=== PATIENT | female | born 2000 | race Hispanic/Latino ===

== ENCOUNTER 2021-10-21 20:18 | Emergency (ER) | payer OTHER, SELFPAY ==
[2021-10-21 20:56] VITALS: BP 104/66; PULSE 83; RESP 18; TEMP 36.7; O2SAT 100
[2021-10-21 21:17] LABS: Basophils Percent Auto 0.2 % (0.2-1.2); Eosinophils Absolute Auto 0.2 K/mm3 (0-0.3); Eosinophils Percent Auto 1.3 % (0-4.4); Hemoglobin 13.9 g/dL (12.0-15.0); Immature Granulocyte Absolute 0.06 K/mm3 (0.00-0.031); Immature Granulocyte Percent A 0.4 % (0-0.5); Lymphocytes Absolute Auto 2.52 K/mm3 (0.9-3.2); Lymphocytes Percent Auto 15.2 % (18.3-44.2); Mean Corpuscular HGB Conc 33.1 g/dl (32-36); Mean Corpuscular Hemoglobin 28.8 pg (26-34); Mean Platelet Volume 10.3 fl (7.4-10.4); Monocytes Absolute Auto 0.8 K/mm3 (0.1-0.6); Monocytes Percent Auto 4.9 % (2.6-8.5); Neutrophils Absolute Auto 12.9 K/mm3 (1.3-6.7); Platelet Count Result 290 k/mm3 (150-375); Red Blood Count 4.83 M/mm3 (4.2-5.4); Red Cell Distribution Width 12.8 % (11.5-14.5); White Blood Count 16.6 K/mm3 (4.5-10.0)
[2021-10-21 21:28] LABS: Alanine Aminotransferase 80 U/L (6-35); Albumin Level 4.5 g/dL (3.5-5.1); Alkaline Phosphatase 110 U/L (38-126); Anion Gap 11 mmol/L (8-16); Aspartate Amino Transferase 138 U/L (14-36); Bilirubin,Total 0.5 mg/dL (0.2-1.3); Blood Urea Nitrogen 10 mg/dL (7-17); Calcium 8.8 mg/dL (8.4-10.2); Carbon Dioxide 25 mmol/L (22-30); Chloride 103 mmol/L (98-107); Estimated CRCL calculation 113 ml/min; Estimated Glomerular Filt Rate > 60; Glucose 134 mg/dL (65-110); Lipase 61 U/L (23-300); Potassium 3.6 mmol/L (3.4-5.0); Sodium 139 mmol/L (137-145)
--- NOTE | 2021-10-21 23:37 | PC.NURSE ---
No answer when pt called to treatment area.
--- NOTE | 2021-10-21 23:43 | PC.NURSE ---
Pt not in waiting room, bathroom, or area adjacent to ED. Assume pt left the premises without being examined by a provider and after trige.
== END 2021-10-21 23:43 | disposition left against medical advice (07) ==
LOC: ANHED 23:52
PROVIDERS: Emergency Provider Emergency Medicine; PCP Pediatrics
DX: M54.6 Pain in thoracic spine (principal)
CPT/HCPCS: 36415; 80053; 83690; 85025; 99199

== ENCOUNTER 2022-09-15 12:52 | Emergency (ER) | payer OTHER, SELFPAY ==
--- NOTE | ~2022-09-15 | US_ITS ---
EXAMINATION: US abdomen limited DATE: 09/15/2022 16:06 INDICATION: Epigastric abdominal pain TECHNIQUE: Multiple grayscale and Doppler ultrasound images of the abdomen were obtained. COMPARISON: CT from today FINDINGS: The head and body of the pancreas are normal. The pancreatic tail is obscured by bowel gas. The liver is normal with normal echogenicity and echotexture. No surface nodularity. Normal hepatope isa flow in the main portal vein. Stones and sludge are present in the otherwise normal-appearing gal lbladder. No gallbladder wall thickening or pericholecystic fluid. The normal common bile duct measur es 4 mm. There was no sonographic Vera sign. IMPRESSION: 1. Gallbladder stones and sludge. Reviewed, dictated and finalized at location B.
--- NOTE | ~2022-09-15 | CT_ITS ---
EXAMINATION: CT abdomen pelvis w con DATE: 09/15/2022 14:55 INDICATION: Epigastric abdominal pain. TECHNIQUE: Computed tomography (CT) of the abdomen and pelvis was performed with 100 mL Omnipaque 350 intravenous contrast. Automated exposure control and iterative reconstruction technique were employe d. The dose-length product was 632.14 mGy-cm. COMPARISON: None. FINDINGS: The visualized portions of the lung bases are clear without pneumonia or pleural effusion. The heart size is normal. No pericardial effusion. The liver, gallbladder, spleen, pancreas, adrenal glands, and kidneys are normal. There are no dilated loops of bowel. The appendix is normal. There ar e no pathologically enlarged lymph nodes. There is no free intraperitoneal fluid. The bones are unrem arkable. IMPRESSION: 1. No etiology for the patient's symptoms. Reviewed, dictated and finalized at location E.
[2022-09-15 12:54] VITALS: BP 123/67; PULSE 86; RESP 14; TEMP 36.6; O2SAT 100
[2022-09-15 13:15] LABS: Basophils Percent Auto 0.4 % (0.2-1.2); Eosinophils Absolute Auto 0.2 K/mm3 (0-0.3); Hematocrit 41.4 % (37.0-47.0); Hemoglobin 13.3 g/dL (12.0-15.0); Immature Granulocyte Absolute 0.02 K/mm3 (0.00-0.031); Immature Granulocyte Percent A 0.3 % (0-0.5); Lymphocytes Absolute Auto 1.52 K/mm3 (0.9-3.2); Lymphocytes Percent Auto 21.7 % (18.3-44.2); Mean Corpuscular HGB Conc 32.1 g/dl (32-36); Mean Corpuscular Volume 90.2 fl (80-100); Mean Platelet Volume 10.1 fl (7.4-10.4); Monocytes Absolute Auto 0.6 K/mm3 (0.1-0.6); Monocytes Percent Auto 8.8 % (2.6-8.5); Neutrophils Absolute Auto 4.6 K/mm3 (1.3-6.7); Neutrophils Percent Auto 65.8 % (45.5-73.1); Platelet Count Result 228 k/mm3 (150-375); Red Blood Count 4.59 M/mm3 (4.2-5.4); Red Cell Distribution Width 13.2 % (11.5-14.5)
[2022-09-15 13:28] LABS: Appearance Urine Clear (Clear); Bacteria Urine 1+ /hpf; Bilirubin Urine Negative (Negative); Blood Urine Negative (Negative); Color Urine Yellow (Yellow); Glucose Urine UA Negative (Negative); Ketones Urine Negative (Negative); Leukocyte Esterase Ur 2+ LEU/UL (Negative); Nitrate Urine Negative (Negative); Non Pathogenic Casts 0-2; Protein Urine Negative (Negative); RBC Urine 0-2 /hpf (0-2); Squamous Epithelial Cell Urine Few /hpf (Few)
[2022-09-15 13:29] LABS: Add Urine Microscopic? YES
[2022-09-15 13:30] LABS: Alanine Aminotransferase 204 U/L (6-35); Albumin Level 4.4 g/dL (3.5-5.1); Alkaline Phosphatase 130 U/L (38-126); Anion Gap 7 mmol/L (8-16); Aspartate Amino Transferase 178 U/L (14-36); Bilirubin,Total 0.8 mg/dL (0.2-1.3); Blood Urea Nitrogen 9 mg/dL (7-17); Calcium 8.9 mg/dL (8.4-10.2); Carbon Dioxide 26 mmol/L (22-30); Chloride 108 mmol/L (98-107); Estimated CRCL calculation 138 ml/min; Estimated Glomerular Filt Rate > 60; Glucose 97 mg/dL (65-110); Lipase 62 U/L (23-300); Potassium 3.8 mmol/L (3.4-5.0); Sodium 141 mmol/L (137-145)
--- NOTE | 2022-09-15 13:32 | ED.ABDPAIN ---
HPI - Abdominal Pain General Chief Complaint: Abdominal Pain Stated Complaint: Abd pain Time Seen by Provider: 09/15/22 13:31 Related Data Allergies Allergy/AdvReac Type Severity Reaction Status Date / Time No Known Allergies Allergy Verified 09/15/22 12:59 Course Vital Signs Vital signs: Vital Signs Temperature 36.6 C 09/15/22 12:54 Pulse Rate 86 09/15/22 12:54 Respiratory Rate 14 09/15/22 12:54 Blood Pressure 123/67 09/15/22 12:54 Pulse Oximetry 100 09/15/22 12:54 Oxygen Delivery Room Air 09/15/22 12:54 Temperature 36.6 C 09/15/22 12:54 Pulse Rate 86 09/15/22 12:54 Respiratory Rate 14 09/15/22 12:54 Blood Pressure 123/67 09/15/22 12:54 Pulse Oximetry 100 09/15/22 12:54 Oxygen Delivery Room Air 09/15/22 12:54 MDM - Abdominal Pain MDM Narrative Medical decision making narrative: Patient presents with intermittent epigastric squeezing pain for months, has been constant for the last few days. She denies any fever, chills, nausea, vomiting. Physical examination showed no significant abnormality. Differential diagnosis gastritis, esophagitis, pancreatitis, gallbladder pathology. Work-up today includes CBC, CMP, lipase, urine analysis, CT abdomen pelvis with IV contrast showed normal CBC, normal chemistry, elevated liver enzymes, normal bilirubin. Urine analysis positive for leukoesterase/2+, WBC 11?20, urine bacteria 1+ CT abdomen and pelvis with IV contrast showed no acute abnormalities, because of the elevated liver enzymes, ultrasound of the gallbladder ordered which showed gall bladder stones and sludge. No cholecystitis at this time. Urinary tract infection could be coincidental finding, is not consistent with physical examination and complaints. My plan to discharge patient on PPI and antibiotic for urinary tract infection. And referred patient to wire saw operator for further evaluation. Differential Diagnosis Differential diagnosis: Likely abdominal pain, constipation, pancreatitis and other (Gastritis, esophagitis) Medical Records Attestation: I reviewed the patient's medical records. Lab Data Attestation: I reviewed the patient's lab results. 09/15/22 13:10 09/15/22 13:10 Labs: Lab Results 09/15/22 Range/Units 13:10 WBC 7.0 (4.5-10.0) K/mm3 RBC 4.59 (4.2-5.4) M/mm3 Hgb 13.3 (12.0-15.0) g/dL Hct 41.4 (37.0-47.0) % MCV 90.2 (80-100) fl MCH 29.0 (26-34) pg MCHC 32.1 (32-36) g/dl RDW 13.2 (11.5-14.5) % Plt Count 228 (150-375) k/mm3 MPV 10.1 (7.4-10.4) fl Immature Gran % (Auto) 0.3 (0-0.5) % Neut % (Auto) 65.8 (45.5-73.1) % Lymph % (Auto) 21.7 (18.3-44.2) % Garrett % (Auto) 8.8 H (2.6-8.5) % Eos % (Auto) 3.0 (0-4.4) % Baso % (Auto) 0.4 (0.2-1.2) % Lymph # (Auto) 1.52 (0.9-3.2) K/mm3 Garrett # (Auto) 0.6 (0.1-0.6) K/mm3 Eos # (Auto) 0.2 (0-0.3) K/mm3 Baso # (Auto) 0.0 (0.0-0.1) K/mm3 Abs Immat Gran (auto) 0.02 (0.00-0.031) K/mm3 Absolute Neuts (auto) 4.6 (1.3-6.7) K/mm3 Absolute Nucleated RBC 0.0 (0.0-0.012) K/mm3 Nucleated RBC % 0.0 (0.0-0.2) % Sodium 141 (137-145) mmol/L Potassium 3.8 (3.4-5.0) mmol/L Chloride 108 H (98-107) mmol/L Carbon Dioxide 26 (22-30) mmol/L Anion Gap 7 L (8-16) mmol/L BUN 9 (7-17) mg/dL Creatinine 0.50 L (0.7-1.0) mg/dL Estim Creat Clear Calc 138 ml/min Estimated GFR > 60 (59 - ) Glucose 97 (65-110) mg/dL Calcium 8.9 (8.4-10.2) mg/dL Total Bilirubin 0.8 (0.2-1.3) mg/dL AST 178 H (14-36) U/L ALT 204 H (6-35) U/L Alkaline Phosphatase 130 H (38-126) U/L Total Protein 8.0 (6.3-8.2) g/dL Albumin 4.4 (3.5-5.1) g/dL Lipase 62 (23-300) U/L Urine Color Yellow (Yellow) Urine Appearance Clear (Clear) Urine pH 7.0 (5.0-9.0) Ur Specific [place] 1.010 (1.001-1.035) Urine Protein Negative (Negative) mg/dL Urine Glucose (UA) Negative (Negative) mg/dL Urine Ketones Negative
[2022-09-15] MEDS: SODIUM CHLORIDE 0.9% IV 1,000 ML 999 ML IV CONT (14:15)
[2022-09-15 17:31] VITALS: PULSE 82; RESP 18; O2SAT 99
== END 2022-09-15 17:34 | disposition home or self-care (01) ==
PROVIDERS: Emergency Provider Emergency Medicine
DX: N39.0 Urinary tract infection, site not specified (principal); R10.13 Epigastric pain; R74.01 Elevation of levels of liver transaminase levels; K80.20 Calculus of gallbladder without cholecystitis without obstruction
CPT/HCPCS: 36415; 74177; 76705; 80053; 81001; 81025; 83690; 85025; 87077; 87086; 87088; 87186; 96360; 99284; J7030; Q9967

== ENCOUNTER 2022-11-04 11:16 | Outpatient (CLI) | payer OTHER, SELFPAY ==
[2022-11-04 12:22] LABS: Alanine Aminotransferase 22 U/L (6-35); Albumin Level 4.5 g/dL (3.5-5.1); Alkaline Phosphatase 88 U/L (38-126); Anion Gap 7 mmol/L (8-16); Aspartate Amino Transferase 28 U/L (14-36); Bilirubin,Total 0.4 mg/dL (0.2-1.3); Blood Urea Nitrogen 7 mg/dL (7-17); Carbon Dioxide 27 mmol/L (22-30); Chloride 105 mmol/L (98-107); Estimated Glomerular Filt Rate > 60; Glucose 86 mg/dL (65-110); Potassium 3.9 mmol/L (3.4-5.0); Sodium 139 mmol/L (137-145)
[2022-11-04 13:09] LABS: Iron 60 ug/dL (37-170)
[2022-11-04 13:19] LABS: Percent Iron Saturation 15 % (20-50)
[2022-11-04 13:41] LABS: Hepatitis B Surface Antigen Negative (Negative)
[2022-11-04 13:47] LABS: HAV RESULT Negative (Negative); Hepatitis B Core IgM Result Negative (Negative)
[2022-11-04 13:59] LABS: Hepatitis C Virus Antibody Negative (Negative)
[2022-11-07 14:37] LABS: Ceruloplasmin 28 mg/dL (18-53)
[2022-11-09 22:10] LABS: Mitochondrial (M2) Ab (IgG) <=20.0 U (<=20.0)
== END 2022-11-04 11:17 | disposition home or self-care (01) ==
PROVIDERS: Visit Provider Internal Medicine Gastroenterology
DX: R74.8 Abnormal levels of other serum enzymes (principal); N64.3 Galactorrhea not associated with childbirth
CPT/HCPCS: 36415; 80053; 80074; 82104; 82390; 82728; 83520; 83540; 83550; 84146; 86038

== ENCOUNTER 2022-11-12 01:16 | Day surgery (SDC) | payer OTHER, SELFPAY ==
[2022-11-05 14:43] VITALS: BMI 37.5
[2022-11-12 10:48] VITALS: BP 123/75; PULSE 93; RESP 18; TEMP 36.6; O2SAT 100
[2022-11-12] MEDS: LACTATED RINGERS 1,000 ML 150 ML IV CONT (11:00)
--- NOTE | 2022-11-12 11:11 | WPDHPUPDATE1 ---
History and Physical Update Update Date/Time: 11/12/22 11:11 History and Physical has been reviewed, including an updated exam of the patient. There are NO changes in the patient's condition. Risks, benefits, and alternatives have been discussed and questions answered. Patient agrees to proceed with procedure.
--- NOTE | 2022-11-12 11:15 | P.PNAN_ITS ---
Anes - Initial Pre Proc Eval Procedure: Operation Date: 11/12/22 12:30 Proposed Procedures p Esophagogastroduodenoscopy EGD - David Owen MD Date/Time: 11/12/22 11:15 Surgeon: David Owen MD Pre Op Diagnosis: upper abdominal pain, unspecified Patient Data Age: 21 Gender: F Height: 1.55 m Weight: 88.1 kg Last Vital Signs Temp 97.8 F 11/12/22 10:48 Pulse 93 11/12/22 10:48 Resp 18 11/12/22 10:48 BP 123/75 11/12/22 10:48 Pulse Ox 100 11/12/22 10:48 O2 Del Method Room Air 11/12/22 10:48 Allergies Allergy/AdvReac Type Severity Reaction Status Date / Time No Known Allergies Allergy Verified 11/12/22 10:46 Home Medications Medication Instructions Recorded Confirmed Type etonogestrel 68 mg subdermal 1 implant subdermal ONCE 11/05/22 11/12/22 History implant (Nexplanon) Patient hx anesthesia problems: none Family hx anesthesia problems: none Results Review: All pre-operative results and documents have been reviewed as part of the pre- operative evaluation. [facility] Past Medical History Medical History (Updated 11/04/22 @ 10:45 by David Owen MD) Dyspepsia Galactorrhea Upper abdominal pain Social History Social History (Updated 11/04/22 @ 10:24 by Shara Lewis CMA) Smoking status: Never smoker Alcohol intake: never Substance use: never Substance use type: does not use Living arrangements: with family Spiritual care concerns: No Anes - Eval Final PreProcedure Day of Procedure 11/12/22 11:15 Patient weight: obese Heart: regular rate and rhythm Lungs: clear to auscultation Airway: Mallampati scale class II Neurological: alert and oriented Last oral intake: >/= 8 hours ASA classification: II Emergent: no Anesthetic plan: proceed Anesthesia type and monitoring: general GIVS and standard monitoring Results Review: All pre-operative results and documents have been reviewed as part of the pre- operative evaluation. Informed Consent: The patient's anesthetic plan and its attendant risks and benefits were discussed with the patient/family/POA. Questions were solicited and answers provided to the satisfaction of the patient/family/POA.
[2022-11-12 11:20] VITALS: BP 111/66; PULSE 85; RESP 21; O2SAT 99
[2022-11-12 11:30] VITALS: BP 120/65; PULSE 73; RESP 16; O2SAT 98
[2022-11-12 11:40] VITALS: BP 112/77; PULSE 63; RESP 17; O2SAT 100
== END 2022-11-12 11:51 | disposition home or self-care (01) ==
PROVIDERS: Visit Provider Internal Medicine Gastroenterology
PROC: 0DJ08ZZ Inspection of Upper Intestinal Tract, Via Natural or Artificial Opening Endoscopic (ICD-10-PCS; CPT 43235; principal; 2022-11-12 12:30)
DX: K29.50 Unspecified chronic gastritis without bleeding (principal); E66.9 Obesity, unspecified; Z68.36 Body mass index [BMI] 36.0-36.9, adult
CPT/HCPCS: 43239; 88305; 88342; J2704; J7120

== ENCOUNTER 2022-12-01 14:51 | Outpatient (CLI) | payer OTHER, SELFPAY ==
--- NOTE | ~2022-12-01 | MR_ITS ---
MRI of the abdomen: Clinical indication: Abdominal pain. Technique: Coronal SSFSE ARC, WATER:coronal LAVA-FLEX, Coronal 2D FIESTA FatSat, Axial SSFSE BH ARC, Axial 3D DualEcho BH, Axial SSFSE-IR, Axial DWI b=500, Axial 2D FIESTA FatSat, pre and dynamic postco ntrast Axial LAVA ARC, postcontrast Coronal In and Opposed phase LAVA FLEX. Following intravenous adm inistration of 18 cc MultiHance gadolinium, T1-weighted fat-sat imaging was performed in the axial an d coronal planes. Findings: Multiple gallstones are noted. The common bile duct is upper limits of normal in diameter, at 6-7 mm. There is a probable small stone at the distal common bile duct, measuring approximately 3 mm (series 3 image 21, series 8 image 11).. No evidence of intrahepatic biliary ductal dilatation. T he pancreatic duct is normal in size. Liver, spleen, pancreas, adrenals, kidneys appear normal. The aorta and the paraaortic regions appear normal. Impression: Cholelithiasis. Probable 3 mm distal common bile duct stone. Common bile duct itself is upper limits of normal in siz e. No evidence for intrahepatic biliary dilatation or acute pancreatitis. Reviewed, dictated and finalized at location M. Impression: Cholelithiasis. Probable 3 mm distal common bile duct stone. Common bile duct itself is upper l imits of normal in size. No evidence for intrahepatic biliary dilatation or acute pancreatitis.
== END 2022-12-01 14:52 | disposition home or self-care (01) ==
PROVIDERS: Visit Provider Internal Medicine Gastroenterology
DX: R10.10 Upper abdominal pain, unspecified (principal); R74.8 Abnormal levels of other serum enzymes; K80.20 Calculus of gallbladder without cholecystitis without obstruction
CPT/HCPCS: 74183; A9577

== ENCOUNTER 2022-12-29 00:49 | Day surgery (SDC) | payer OTHER, SELFPAY ==
[2022-12-16 13:36] VITALS: BMI 36.7
[2022-12-29] VITALS (8 sets, daily range): BP systolic 107–138; BP diastolic 51–76; PULSE 78–97; RESP 16–24; TEMP 36.6–36.7; O2SAT 99–100
--- NOTE | ~2022-12-29 | XR_ITS ---
EXAMINATION: XR ERCP DATE: 12/29/2022 12:15 CDT INDICATION: ERCP STONES . TECHNIQUE: 3 fluoroscopic images of the right upper quadrant were obtained during ERCP. I was not pre sent during the procedure. Fluoroscopy exposure time was 122.5 seconds. Air Kerma 17.17 mGy. DAP 0.52 222 mGym2. COMPARISON: MR abdomen 12/01/2022. FINDINGS: Mildly prominent common bile duct. Cannulation of the biliary system. Bile duct filling defect may re present a gas bubble or stone. Likely balloon sweep of the common duct. IMPRESSION: Fluoroscopic documentation of ERCP. Please refer to the operative note for complete procedural detail s . Reviewed, dictated and finalized at location K. IMPRESSION: Fluoroscopic documentation of ERCP. Please refer to the operative note for comp lete procedural details .
[2022-12-29] MEDS: LACTATED RINGERS 1,000 ML 150 ML IV CONT (11:50)
--- NOTE | 2022-12-29 11:52 | WPDANESEPPF ---
Anes - Initial Pre Proc Eval Procedure: Operation Date: 12/29/22 13:00 Proposed Procedures p Endoscopic Retro Cholangiopancreatogram - David Owen MD Date/Time: 12/29/22 11:52 Surgeon: David Owen MD Pre Op Diagnosis: Calculus of bile duct,Cholelithiasis. Patient Data Age: 22 Gender: F Height: 1.55 m Weight: 89.7 kg Last Vital Signs Temp 97.9 F 12/29/22 11:32 Pulse 81 12/29/22 11:32 Resp 18 12/29/22 11:32 BP 138/76 12/29/22 11:32 Pulse Ox 100 12/29/22 11:32 O2 Del Method Room Air 12/29/22 11:32 Allergies Allergy/AdvReac Type Severity Reaction Status Date / Time No Known Allergies Allergy Verified 12/29/22 11:31 Home Medications Medication Instructions Recorded Confirmed Type No Home Medications 12/16/22 12/16/22 History Patient hx anesthesia problems: none Family hx anesthesia problems: none Results Review: All pre-operative results and documents have been reviewed as part of the pre-operative evaluation. [facility] Past Medical History Medical History Bile duct stone Cholelithiasis Dyspepsia Galactorrhea Helicobacter positive gastritis Upper abdominal pain Social History Social History Smoking status: Never smoker Alcohol intake: never Substance use: never Substance use type: does not use Living arrangements: with family Spiritual care concerns: No Anes - Eval Final PreProcedure Day of Procedure 12/29/22 11:52 Patient weight: obese Heart: regular rate and rhythm Lungs: clear to auscultation Airway: Mallampati scale class II Neurological: alert and oriented Last oral intake: >/= 8 hours ASA classification: II Emergent: no Anesthetic plan: proceed Anesthesia type and monitoring: general ETT and standard monitoring Results Review: All pre-operative results and documents have been reviewed as part of the pre-operative evaluation. Informed Consent: The patient's anesthetic plan and its attendant risks and benefits were discussed with the patient/family/POA. Questions were solicited and answers provided to the satisfaction of the patient/family/POA.
--- NOTE | 2022-12-29 12:14 | PM.HPGS ---
History of Present Illness History of Present Illness Consent: Risks, benefits, and alternatives have been discussed and questions answered. Patient agrees to proceed with procedure. Chief complaint: Calculus of bile duct,Cholelithiasis. Narrative: Caro Tom is a 22 year old female with previous ER visit after abdominal pain and elevated liver enzymes (normalized since and no more episodes) but MRCP showed small stone in bile duct and cholelithiasis. Recent EGD unremarkable but bx showed h pylori- treated. Here for ercp Review of Systems Constitutional: Constitutional: Denies headache(s) and Denies weakness Eyes: Eyes: Denies blurry vision ENT: Reports Normal hearing present, Denies headache(s) and Denies neck pain Cardiovascular: Cardiovascular: Denies chest pain and Denies dyspnea Respiratory: Respiratory: Denies dyspnea Gastrointestinal: Gastrointestinal: Reports no additional gastrointestinal complaints Genitourinary: Genitourinary: Denies dysuria Musculoskeletal: Musculoskeletal: Denies neck pain Integumentary/Breasts: Skin/Breast: Denies dry skin Neurologic: Reports Normal hearing present, Denies headache(s) and Denies weakness Psychiatric: Psychiatric: Denies anxiety Endocrine: Endocrine: Denies change in body appearance Hematologic/Lymphatic: Hematologic/Lymphatic: Denies easy bleeding Allergic/Immunologic: Allergic/Immunologic: Denies urticaria PMFSH Past Medical History Medical History Bile duct stone Cholelithiasis Dyspepsia Galactorrhea Helicobacter positive gastritis Upper abdominal pain Social History Social History Smoking status: Never smoker Alcohol intake: never Substance use: never Substance use type: does not use Living arrangements: with family Spiritual care concerns: No Meds Home Medications and Allergies Home Medications Medication Instructions Recorded Confirmed Type No Home Medications 12/16/22 12/16/22 History Allergies Allergy/AdvReac Type Severity Reaction Status Date / Time No Known Allergies Allergy Verified 12/29/22 11:31 Vital Signs Vital Signs - 24 hr 12/29/22 11:32 Temperature 97.9 F Pulse Rate 81 Respiratory Rate 18 Blood Pressure 138/76 Pulse Oximetry 100 Oxygen Delivery Room Air Exam Const: General: comfortable and no acute distress HENMT: Face/Nose/Sinus: Normal nares present Eyes: General: appearance normal, both eyes and all related structures Neck: Neck: no JVD Resp: Auscultation: clear to auscultation bilaterally Cardio: Rate: regular rate Rhythm: regular rhythm GI: Inspection: non-distended GI Palp: Yes Soft to palpation Skin: General skin exam: normal color Neuro: General: gait normal Speech: normal speech Extrem: General: normal to inspection Psych: Mental Status: mental status grossly normal Assessment and Plan Assessment and plan (1) Bile duct stone: Code(s): K80.50 - Calculus of bile duct without cholangitis or cholecystitis without obstruction Status: Acute Assessment and Plan: ercp to assess bile duct patient will received indomethacin supp as prophylaxis (2) Cholelithiasis: Code(s): K80.20 - Calculus of gallbladder without cholecystitis without obstruction Status: Acute Assessment and Plan: probably will need also surgery referral
[2022-12-29] MEDS: INDOMETHACIN 50 MG SUPP.RECT 100 MG RECTAL (12:30)
== END 2022-12-29 14:36 | disposition home or self-care (01) ==
PROVIDERS: Visit Provider Internal Medicine Gastroenterology
PROC: (CPT 43260; principal; 2022-12-29 13:00)
DX: K80.70 Calculus of gallbladder and bile duct without cholecystitis without obstruction (principal); E66.9 Obesity, unspecified; Z68.37 Body mass index [BMI] 37.0-37.9, adult
CPT/HCPCS: 43262; 43264; 74329; A9270; J1100; J2405; J2704; J7120; Q9966

== ENCOUNTER 2022-12-29 18:25 | Inpatient (IN) | payer OTHER, SELFPAY ==
--- NOTE | ~2022-12-29 | CT_ITS ---
EXAMINATION: CT abdomen pelvis w con DATE: 12/29/2022 22:08 INDICATION: RUQ abdominal pain TECHNIQUE: Computed tomography (CT) of the abdomen and pelvis was performed with 100 mL Omnipaque-350 intravenous contrast. Automated exposure control and iterative reconstruction technique were employe d. The dose-length product was 739.82 mGy-cm. COMPARISON: 09/15/2022. FINDINGS: Lower thorax: Unremarkable Liver: Normal. Biliary/Gallbladder: Gallbladder is normal. No bile duct dilation. Pancreas: Inflammatory stranding and fluid surrounding the head and uncinate process of the pancreas. Spleen: Normal. Adrenals:No mass. Kidneys: No suspicious mass, obstructing stone, or hydronephrosis. GI tract: Mild distal esophageal and gastric wall edema. No small bowel dilation. Dilation of the cec um to 9.3 cm, which is transposed into the midabdomen through an apparent mesenteric defect and folde d back on itself, accompanied by several loops of nondilated small bowel and mesenteric twisting. Cec al position was previously normal. Normal appendix. Mesentery/Peritoneum: Fluid extends from the pancreatic bed into the left paracolic gutter. Retroperitoneum: No mass. Pelvis: Pelvic organs are within normal limits. Soft Tissues: Soft tissues and body wall unremarkable. Bones: No acute osseous finding. IMPRESSION: Mild esophagitis/gastritis. Acute, uncomplicated interstitial pancreatitis. The dilated cecum is transposed into the mid abdomen through an apparent mesenteric defect, accompani ed by twisting of the mesentery which can be seen with cecal volvulus and cecal bascule. Reviewed, dictated and finalized at location K. IMPRESSION: Mild esophagitis/gastritis. Acute, uncomplicated interstitial pancreatitis. The dilated cecum is transposed into the mid abdomen through an apparent mesent neena defect, accompanied by twisting of the mesentery which can be seen with ce peyton volvulus and cecal bascule.
--- NOTE | ~2022-12-29 | XR_ITS ---
EXAMINATION: XR abdomen gastric tube insert DATE: 12/30/2022 00:22 INDICATION: Nasogastric tube placement. TECHNIQUE: An upright view of the abdomen was obtained. COMPARISON: CT abdomen and pelvis 12/29/2022 FINDINGS: The lower abdomen is excluded. There is gaseous distention of the cecum, which is in the mi d abdomen. The nasogastric tube tip is in the stomach. IMPRESSION: 1. Nasogastric tube tip in the stomach. 2. Gaseous distention of the cecum in the midabdomen, consistent with adynamic ileus versus volvulus. Reviewed, dictated and finalized at location E.
--- NOTE | ~2022-12-29 | CT_ITS ---
EXAMINATION: CTA chest PE protocol DATE: 01/01/2023 12:16 INDICATION: Hypoxia, tachycardia. Recent surgery. TECHNIQUE: Computed tomography angiography (CTA) of the chest was performed with 100 mL Omnipaque-350 intravenous contrast timed to evaluate the pulmonary arteries. Coronal maximum intensity projection 3D-reconstructions were created by the technologist. Automated exposure control and iterative reconst ruction technique were employed. Exam dose: 568.38 mGy-cm total exam DLP. COMPARISON: 12/29/2022 portable AP chest FINDINGS: There is diagnostic contrast enhancement of the pulmonary arteries and no evidence of pulmo nary embolism. No thoracic aortic aneurysm or dissection. No hilar or mediastinal mass lesion or lymphadenopathy. No pericardial effusion. There are mild to moderate bilateral pleural effusions. There is prominent dependent atelectasis of both lower lobes and to a lesser extent the upper lobes. There are skin marisela along the upper mid abdomen. There is a catheter device coursing along the lef t lateral margin of the left hepatic lobe into the donal hepatis area. IMPRESSION: Mild to moderate bilateral pleural effusions, prominent bilateral dependent lower lobe a nd to a lesser extent upper lobe atelectasis No evidence of pulmonary embolism Reviewed, dictated and finalized at Location A. Reviewed, dictated and finalized at location A. IMPRESSION: Mild to moderate bilateral pleural effusions, prominent bilateral dependent lower lobe and to a lesser extent upper lobe atelectasis No evidence of pulmonary embolism
--- NOTE | ~2022-12-29 | XR_ITS ---
EXAMINATION: XR chest 1V portable Exam Date/Time: 12/29/2022 20:50 CDT HISTORY: RUQ pain;had ERCP today with stone extraction; non smoker Comparison: None. RESULT: Lines, tubes, and devices: None. Lungs and pleura: Clear. Cardiomediastinal silhouette: Unremarkable. Other: No acute osseous or upper abdominal finding. IMPRESSION: No acute cardiopulmonary process. Reviewed, dictated and finalized at location K.
--- NOTE | ~2022-12-29 | CT_ITS ---
EXAMINATION: CT abdomen pelvis w con DATE: 01/02/2023 13:05 INDICATION: Diffuse abdominal pain. History of pancreatitis, cholecystectomy. TECHNIQUE: Computed tomography (CT) of the abdomen and pelvis was performed with 100 CC Omnipaque 350 intravenous contrast. Automated exposure control and iterative reconstruction technique were employe d. Exam dose: 941.86 mGy-cm total exam DLP. COMPARISON: 12/29/2022 CT abdomen pelvis FINDINGS: There are new moderate bilateral pleural effusions with prominent atelectasis/consolidation in both dependent lower lobes since 12/29/2022. Normal heart size. No pericardial effusion. Percutaneous drainage catheter is noted along the undersurface of the right hepatic lobe, extending a round the left lateral margin of the lateral segment of the left hepatic lobe. There is minimal free air in the gallbladder fossa postcholecystectomy. There is increased mesenteric edema since 12/29/2022. There is mild fluid accumulation in the lateral renal space and right paracolic gutter. The cecum has returned to the right lower quadrant from its position extending across the midline in the upper abdomen on 12/29/2022. Normal appendix. No bowel obstruction or intraperitoneal free air is noted otherwise. Normal caliber of the abdominal aorta. No intraperitoneal or retroperitoneal or pelvic mass lesion or adenopathy. The urinary bladder, uterus and adnexal areas are unremarkable. IMPRESSION: Status post cholecystectomy and repositioning of the cecum into the right lower quadrant since 12/29/2022; upper abdominal percutaneous surgical drain. Increased mesenteric edema and minimal ascites since 12/29/2022 and interval development of moderate bilateral pleural effusions and prominent bilateral lower lobe atelectasis Reviewed, dictated and finalized at Location A. Reviewed, dictated and finalized at location A. IMPRESSION: Status post cholecystectomy and repositioning of the cecum into th e right lower quadrant since 12/29/2022; upper abdominal percutaneous surgical drain. Increased mesenteric edema and minimal ascites since 12/29/2022 and interval de velopment of moderate bilateral pleural effusions and prominent bilateral lower lobe atelectasis
[2022-12-29 18:27] VITALS: BP 132/86; PULSE 100; RESP 20; TEMP 36.8; O2SAT 100
[2022-12-29 20:40] VITALS: BP 121/87; PULSE 95; RESP 18; O2SAT 100
--- NOTE | 2022-12-29 20:48 | ED.ABDPAIN ---
HPI - Abdominal Pain General Chief Complaint: Abdominal Pain Stated Complaint: abdominal pain Time Seen by Provider: 12/29/22 20:28 Source: patient Limitations: no limitations History of Present Illness HPI narrative: Patient is a 22-year-old female present to the emergency department complaining of abdominal pain. Patient dates around 1 PM today she had a stone removed from her bile duct with Dr. Mendoza and was told that she would probably have abdominal pain however when she got home she been having constant abdominal pain in the right upper quadrant and epigastric region that is nonradiating, has been constant, progressively worsening, tried Tylenol for the pain without any relief, admits to consuming some soup from [employer] earlier today without any significant changes in her pain, admits to 1 episode of emesis here that looked like cranberry juice which she consumed prior to coming into the emergency department. Patient admits to some mild right lower quadrant pain as well. Admits to slight nausea currently. Denies any cough, chest pain, shortness of breath, dysuria, hematuria, history of kidney stones, diarrhea, melena, rash, recent injuries, recent illness. Patient is unsure if she has had any fevers. Patient notes her last bowel movement was 3 days ago and denies passing any gas in the past 3 days. Related Data Home Medications Medication Instructions Recorded Confirmed No Home Medications 12/16/22 12/30/22 Allergies Allergy/AdvReac Type Severity Reaction Status Date / Time No Known Allergies Allergy Verified 12/29/22 20:41 Review of Systems Review of Systems: A 10 system review of systems was completed on the patient and is negative except for what is stated in the HPI. Nursing and ancillary documentation was reviewed. [facility] Past Medical History Medical History (Updated 12/31/22 @ 11:35 by Fei Pope MD) Abnormal CT scan, colon Bile duct stone Cholelithiasis Dyspepsia Galactorrhea Helicobacter positive gastritis Nausea and vomiting in adult Post-ERCP acute pancreatitis Upper abdominal pain Surgical History Surgical History (Updated 12/30/22 @ 15:03 by David Owen MD) Status post endoscopic retrograde cholangiopancreatography 12/29/2022 with findings of a single common bile duct stone Family History Family History Other No pertinent family history Social History Social History Smoking status: Never smoker Second hand tobacco smoke exposure: No Alcohol intake: never Substance use: never Substance use type: does not use Lack of Transportation: No Lack of Food: Never True Current Housing: I Have Housing Concerned About Future Housing: No Difficulty Paying Gas/Electric Bills: No Difficulty Paying for Meds: No Currently Unemployed: No Education: Decline to Answer Difficulty w/ Childcare or Family Care: No Living arrangements: with family Spiritual care concerns: No Comments At time of signature, I have reviewed and agree with nursing past medical, surgical, social and family history unless otherwise noted. Please see the nursing chart for further information. There is no relevant family history pertinent to the presenting complaint. Exam Narrative: CONST: No acute distress. Well nourished. HENMT: Head is normocephalic and atraumatic. Tacky mucous membranes. No posterior oropharynx erythema. EYES: No conjunctival icterus, injection, or pallor. PERRL. NECK: No meningeal signs. RESP: Able to speak in full sentences. Normal respiratory effort. CTAB. CARDIO: Regular rate. Regular rhythm. 2+ DP and radial pulses bilaterally. GI: Nondistended. Soft. Mild tenderness to palpation in the right upper quadrant with a positive Vera sign. No palpable masses or hernias. No rebound or guarding or rigidity. Mild tenderness to pa
[2022-12-29] MEDS: ONDANSETRON INJ 4 MG/2 ML VIAL IV PUSH (21:12)
[2022-12-29] MEDS: SODIUM CHLORIDE 0.9% IV 1,000 ML 999 ML IV CONT ×2 (21:12→22:44)
[2022-12-29] MEDS: MORPHINE SULFATE (*CRX) 4 MG/ML INJ IV PUSH ×2 (21:12→22:54)
[2022-12-29 21:25] LABS: Hematocrit 43.4 % (37.0-47.0); Hemoglobin 14.3 g/dL (12.0-15.0); Mean Corpuscular HGB Conc 32.9 g/dl (32-36); Mean Corpuscular Hemoglobin 28.5 pg (26-34); Mean Corpuscular Volume 86.6 fl (80-100); Mean Platelet Volume 10.6 fl (7.4-10.4); Platelet Count Result 260 k/mm3 (150-375); Red Blood Count 5.01 M/mm3 (4.2-5.4); White Blood Count 16.5 K/mm3 (4.5-10.0)
[2022-12-29 21:34] LABS: Prothrombin Time 13.8 Seconds (11.1-14.7)
[2022-12-29 21:36] LABS: Lactic Acid Reflex 1.5 mmol/L (0.7-2.0)
[2022-12-29 21:44] LABS: Band Neutrophils Percent 3 % (0-6); Lymphocytes Absolute Manual 0.99 K/mm3 (1.1-4.5); Monocytes Absolute Manual 0.16 K/mm3 (0.1-0.90); Monocytes Percent Manual 1 % (3-9); Neutrophils Absolute Manual 15.34 K/mm3 (1.7-7.2); Neutrophils Percent Manual 90 % (46-73); Total Cells Counted 100
[2022-12-29 21:45] LABS: Platelet Estimate Adequate (Adequate); Schistocytes None Seen (NORMAL)
[2022-12-29 21:48] LABS: Alanine Aminotransferase 34 U/L (6-35); Albumin Level 4.7 g/dL (3.5-5.1); Alkaline Phosphatase 93 U/L (38-126); Anion Gap 12 mmol/L (8-16); Aspartate Amino Transferase 39 U/L (14-36); Bilirubin,Total 0.6 mg/dL (0.2-1.3); Blood Urea Nitrogen 9 mg/dL (7-17); Calcium 9.2 mg/dL (8.4-10.2); Carbon Dioxide 22 mmol/L (22-30); Chloride 104 mmol/L (98-107); Estimated CRCL calculation 147 ml/min; Estimated Glomerular Filt Rate > 60; Glucose 142 mg/dL (65-110); Magnesium 1.7 mg/dL (1.6-2.3); Potassium 3.9 mmol/L (3.4-5.0); Sodium 138 mmol/L (137-145)
[2022-12-29 22:04] LABS: Lipase 15762 U/L (23-300)
[2022-12-29] MEDS: PIPERACILLIN/TAZ 4.5G/NS 100ML 4.5 GM/100 ML BAG IVPB (22:53)
--- NOTE | 2022-12-29 22:54 | PM.IMHP ---
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 Patient denies fevers, rigors, or chills. EXAMINATION: CT abdomen pelvis w con DATE: 12/29/2022 22:08 INDICATION: RUQ abdominal pain TECHNIQUE: Computed tomography (CT) of the abdomen and pelvis was performed with 100 mL Omnipaque-350 intravenous contrast. Automated exposure control and iterative reconstruction technique were employed. The dose-length product was 739.82 mGy-cm. COMPARISON: 09/15/2022. FINDINGS: Lower thorax: Unremarkable Liver: Normal.? Biliary/Gallbladder: Gallbladder is normal. No bile duct dilation. Pancreas: Inflammatory stranding and fluid surrounding the head and uncinate process of the pancreas. Spleen: Normal. Adrenals:No mass. Kidneys: No suspicious mass, obstructing stone, or hydronephrosis. GI tract: Mild distal esophageal and gastric wall edema. No small bowel dilation. Dilation of the cecum to 9.3 cm, which is transposed into the midabdomen through an apparent mesenteric defect and folded back on itself, accompanied by several loops of nondilated small bowel and mesenteric twisting. Cecal position was previously normal. Normal appendix. Mesentery/Peritoneum: Fluid extends from the pancreatic bed into the left paracolic gutter. Retroperitoneum: No mass. Pelvis: Pelvic organs are within normal limits. Soft Tissues: Soft tissues and body wall unremarkable. Bones:? No acute osseous finding. IMPRESSION: Mild esophagitis/gastritis. Acute, uncomplicated interstitial pancreatitis. The dilated cecum is transposed into the mid abdomen through an apparent mesenteric defect, accompanied by twisting of the mesentery which can be seen with cecal volvulus and cecal bascule. Review of Systems Review of Systems: N/V/ABDOMINAL PAIN Constitutional: Constitutional: Denies chills, Denies fever(s), Reports malaise and Reports poor appetite Eyes: Eyes: Denies change in vision ENT: Denies dysphagia and Denies odynophagia Cardiovascular: Cardiovascular: Denies chest pain, Denies radiating jaw, neck or arm pain and Denies palpitations Respiratory: Respiratory: Denies chest congestion, Denies cough and Denies excessive phlegm production Gastrointestinal: Gastrointestinal: Reports abdominal pain, Denies dyspepsia, Denies heartburn, Denies diarrhea, Denies loose stools, Reports nausea and Denies vomiting Genitourinary: Genitourinary: Denies dysuria Musculoskeletal: Musculoskeletal: Denies arthralgias and Denies joint swelling Integumentary/Breasts: Skin/Breast: Denies rash Neurologic: Denies focal weakness and Denies Sensory deficit (Neuro) Psychiatric: Psychiatric: Reports no additional psychiatric complaints and Reports as per HPI Endocrine: Endocrine: Denies cold intolerance, Denies flushing, Denies heat intolerance, Denies polyphagia, Denies polydipsia and Denies palpitations Hematologic/Lymphatic: Hematologic/Lymphatic: Reports no additional hematologic/lymphatic complaints and Reports as per HPI Allergic/Immunologic: Allergic/Immunologic: Reports no additional allergic/immunologic complaints and Reports as per HPI PMFSH Past Medical History Medical History Bile duct stone Cholelithiasis Dyspepsia Galactorrhea Helicobacter positive gastritis Upper abdominal pain Social History Social History Smoking status: Never smoker Second hand tobacco smoke exposure: No Alcohol intake: never Substance use: never Substance use type: does not use Lack of Vora
[2022-12-30] VITALS (13 sets, daily range): BP systolic 125–148; BP diastolic 67–103; PULSE 85–106; RESP 14–27; TEMP 36.6–37.2; O2SAT 97–100; BMI 38.0
[2022-12-30] MEDS: MORPHINE SULFATE (*CRX) 4 MG/ML INJ IV PUSH ×5 (00:01→13:38)
[2022-12-30] MEDS: ONDANSETRON INJ 4 MG/2 ML VIAL IV PUSH ×3 (00:01→17:46)
[2022-12-30 00:27] LABS: Lactic Acid Reflex 1.1 mmol/L (0.7-2.0)
[2022-12-30 00:37] LABS: Appearance Urine Cloudy (Clear); Bacteria Urine 2+ /hpf; Bilirubin Urine Negative (Negative); Blood Urine Negative (Negative); Color Urine Yellow (Yellow); Glucose Urine UA Negative (Negative); Ketones Urine 1+ mg/dL (Negative); Leukocyte Esterase Ur Trace LEU/UL (Negative); Need Manual Microscopic Reviewed; Nitrate Urine Negative (Negative); Non Pathogenic Casts 0-2; Protein Urine Negative (Negative); RBC Urine 0-2 /hpf (0-2); Squamous Epithelial Cell Urine Many /hpf (Few); Urobilinogen Urine 0.2 mg/dL (<2.0)
[2022-12-30 00:41] LABS: Specific Grav Ur 1.049 (1.001-1.035)
[2022-12-30 00:42] LABS: Add Urine Microscopic? YES
--- NOTE | 2022-12-30 00:49 | ADMGEN ---
This patient, Caro Tom, was admitted to Medical Room 346-01. Patient/family oriented to hospital policies and general routines including ID bracelet, bed and alarms, visiting hours, pain management, procedures, bathroom and other care routines, personal items, smoking policy, room service/diet, and visiting hours. Information on how to activate the Rapid Response Team has been discussed. Patient/Family are encouraged to report perceived risks to care and to ask questions if they do not understand what they are told or what they should do.
[2022-12-30] MEDS: metroNIDAZOLE 500 MG/ISO 100ML 500 MG/100 ML BAG 100 MG IVPB ×3 (00:59→17:56)
[2022-12-30] MEDS: SODIUM CHLORIDE 0.9% IV 1,000 ML 125 ML IV CONT ×2 (01:00→13:36)
--- NOTE | 2022-12-30 05:10 | PC.NURSE ---
Spoke to primary MD about pending NG tube placement confirmation. MD verified image and confirmed placement for patient use.
[2022-12-30] MEDS: PIPERACILLN/TAZ 3.375GM/NS50ML 3.375 GM/50 ML BAG IVPB ×3 (09:44→19:54)
[2022-12-30 09:49] LABS: Mean Corpuscular HGB Conc 31.7 g/dl (32-36); Mean Corpuscular Hemoglobin 28.3 pg (26-34); Mean Corpuscular Volume 89.1 fl (80-100); Mean Platelet Volume 10.9 fl (7.4-10.4); Platelet Count Result 238 k/mm3 (150-375); Red Cell Distribution Width 13.2 % (11.5-14.5)
--- NOTE | 2022-12-30 09:54 | PM.CNGS ---
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 It appears she has post-ERCP pancreatitis. CT abdomen and pelvis in the ER also showed a dilated cecum transposed into the mid abdomen through an apparent mesenteric defect, consistent with possible cecal volvulus or cecal bascule. Labs revealed a white blood cell count of 16,500 and lactic acid 1.5. She is still having abdominal pain and has tenderness throughout the entire abdomen on exam. Difficult to decipher if her abdominal pain and tenderness is related to the pancreatitis or because of possible cecal volvulus. All treatment options were discussed by Dr. Pope with the patient and her family this morning. Decision was made to proceed with an exploratory laparotomy, possible bowel resection, possible cholecystectomy later today by Dr. Pope. We will keep her NPO with IV fluids and analgesics as needed. Continue NG tube decompression. Will change her IV antibiotics to IV Zosyn and metronidazole. Repeat labs this morning to reassess. (2) Acute pancreatitis: Qualifiers: Acute pancreatitis complication: unspecified Pancreatitis type: other Qualified Code(s): K85.80 - Other acute pancreatitis without necrosis or infection Code(s): K85.90 - Acute pancreatitis without necrosis or infection, unspecified Status: Acute Assessment and Plan: S/p ERCP yesterday with removal of a distal common duct stone. She has had progressively worsening upper abdominal pain since the ERCP. Workup in the ER consistent with post-ERCP pancreatitis. Lipase last night was 15,762. Difficult to tell if her abdominal pain and tenderness is related to the pancreatitis or possible cecal volvulus. We will keep her NPO with IV fluids and analgesics as needed. Will repeat a lipase this morning, labs pending. Plan to proceed to the OR today as mentioned above. (3) Cholelithiasis: Code(s): K80.20 - Calculus of gallbladder without cholecystitis without obstruction Status: Acute Assessment and Plan: Outpatient workup through GI for upper abdominal pain with findings on Abdominal MRI of cholelithiasis with distal common bile duct stone, no evidence of pancreatitis at that time, prompting outpatient ERCP yesterday with removal of a single common duct stone. Discussed with patient that she will eventually need a cholecystectomy to prevent recurrence and future complications with the cholelithiasis. This may potentially be done during her surgery today depending on intraoperative findings. Patient aware and surgery was discussed with patient by Dr. Pope this morning. Plan I have discussed the patient's case and plan of care with Dr. Pope. Thank you for allowing us to see the patient in consultation and we will continue to follow along with you. History of Present Illness Consult details Consult date: 12/30/22 Reason for consult: other (Cecal volvulus) Requesting physician: Adrian José DO Narrative: This is a 22-year-old woman who we have been asked to see in surgical consultation for cecal volvulus. The patient was undergoing outpatient workup by GI for upper abdominal pain since September. She was eventually found to have a distal common bile duct stone with cholelithiasis on an outpatient MRI of the abdomen. She subsequently had an outpatient ERCP yesterday with removal of a distal common bile duct stone. She was sent home and continued to have upper abdominal pain. This abdominal pain progressively got worse. She developed nausea and 1 episode of vomiting after drinking cranberry juice. Due to her persistent pain, she presented to the ER for evaluation. [place] [address], lactic acid 1.5, lipase 15,762, LFTs essentially unremarkable. Chest x-ray negative. CT of the abdomen an
[2022-12-30 10:04] LABS: Alanine Aminotransferase 272 U/L (6-35); Albumin Level 3.8 g/dL (3.5-5.1); Alkaline Phosphatase 105 U/L (38-126); Anion Gap 5 mmol/L (8-16); Aspartate Amino Transferase 344 U/L (14-36); Bilirubin,Total 2.7 mg/dL (0.2-1.3); Blood Urea Nitrogen 6 mg/dL (7-17); Calcium 7.8 mg/dL (8.4-10.2); Carbon Dioxide 24 mmol/L (22-30); Chloride 107 mmol/L (98-107); Estimated CRCL calculation 149 ml/min; Estimated Glomerular Filt Rate > 60; Glucose 129 mg/dL (65-110); Potassium 3.4 mmol/L (3.4-5.0); Sodium 136 mmol/L (137-145)
--- NOTE | 2022-12-30 14:17 | WPDANESEPPF ---
Anes - Initial Pre Proc Eval Procedure: Operation Date: 12/30/22 15:30 Proposed Procedures p Exploratory Laparotomy, Possible Bowel Resection, - Fei Pope MD s Possible Cholecystectomy - Fei Pope MD Date/Time: 12/30/22 14:17 Surgeon: Piyush Gardner MD Pre Op Diagnosis: Post ERCP Pancreatitis and Cecal Volvulus Patient Data Age: 22 Gender: F Height: 1.55 m Weight: 91.2 kg Last Vital Signs Temp 36.6 C 12/30/22 05:18 Pulse 86 12/30/22 05:18 Resp 14 12/30/22 05:18 BP 128/71 12/30/22 05:18 Pulse Ox 97 12/30/22 05:18 O2 Del Method Room Air 12/30/22 08:10 Allergies Allergy/AdvReac Type Severity Reaction Status Date / Time No Known Allergies Allergy Verified 12/29/22 20:41 Home Medications Medication Instructions Recorded Confirmed Type No Home Medications 12/16/22 12/30/22 History Laboratory Tests 12/29/22 12/29/22 12/29/22 21:17 22:46 23:50 WBC 16.5 H K/mm3 (4.5-10.0) RBC 5.01 M/mm3 (4.2-5.4) Hgb 14.3 g/dL (12.0-15.0) Hct 43.4 % (37.0-47.0) MCV 86.6 fl (80-100) MCH 28.5 pg (26-34) MCHC 32.9 g/dl (32-36) RDW 13.0 % (11.5-14.5) Plt Count 260 k/mm3 (150-375) MPV 10.6 H fl (7.4-10.4) Immature Gran % (Auto) Not Reportable Neut % (Auto) Not Reportable Lymph % (Auto) Not Reportable Bowman % (Auto) Not Reportable Eos % (Auto) Not Reportable Baso % (Auto) Not Reportable Lymph # (Auto) Not Reportable Bowman # (Auto) Not Reportable Eos # (Auto) Not Reportable Baso # (Auto) Not Reportable Abs Immat Gran (auto) Not Reportable Absolute Neuts (auto) Not Reportable Absolute Nucleated RBC Not Reportable Total Counted 100 Neutrophils % (Manual) 90 H % (46-73) Band Neutrophils % 3 % (0-6) Lymphocytes % (Manual) 6.0 L % (18-44) Monocytes % (Manual) 1 L % (3-9) Nucleated RBC % Not Reportable Abs Neuts (Manual) 15.34 H K/mm3 (1.7-7.2) Abs Lymphs (Manual) 0.99 L K/mm3 (1.1-4.5) Abs Monocytes (Manual) 0.16 K/mm3 (0.1-0.90) Platelet Estimate Adequate (Adequate) Schistocytes None seen (NORMAL) PT 13.8 Seconds (11.1-14.7) INR 1.0 Sodium 138 mmol/L (137-145) Potassium 3.9 mmol/L (3.4-5.0) Chloride 104 mmol/L (98-107) Carbon Dioxide 22 mmol/L (22-30) Anion Gap 12 mmol/L (8-16) BUN 9 mg/dL (7-17) Creatinine 0.50 L mg/dL (0.7-1.0) Estim Creat Clear Calc 147 ml/min Estimated GFR > 60 (59 - ) Glucose 142 H mg/dL (65-110) Lactic Acid 1.5 mmol/L 1.1 mmol/L (0.7-2.0) (0.7-2.0) Calcium 9.2 mg/dL (8.4-10.2) Magnesium 1.7 mg/dL (1.6-2.3) Total Bilirubin 0.6 mg/dL (0.2-1.3) AST 39 H U/L (14-36) ALT 34 U/L (6-35) Alkaline Phosphatase 93 U/L (38-126) Total Protein 9.0 H g/dL (6.3-8.2) Albumin 4.7 g/dL (3.5-5.1) Lipase 36378 H U/L (23-300) Urine Color Yellow (Yellow) Urine Appearance Cloudy H (Clear) Urine pH 7.0 (5.0-9.0) Ur Specific [place] 1.049 H (1.001-1.035) Urine Protein Negative mg/dL (Negative) Urine Glucose (UA) Negative mg/dL (Negative) Urine Ketones 1+ H mg/dL (Negative) Ur Blood (Man) Negative (Negative) Urine Nitrate Negative (Negative) Urine Bilirubin Negative (Negative) Urine Urobilinogen 0.2 mg/dL (<2.0) Add Ur Microanalysis Reviewed Leukocyte Esterase Rfl Trace H KAITLIN/U
--- NOTE | 2022-12-30 14:37 | PC.NURSE ---
Patient to OR per bed 12/30/22 [id number].
--- NOTE | 2022-12-30 14:38 | PM.IMPN ---
Progress Note: A&P Assessment and Plan (1) Acute pancreatitis: Qualifiers: Acute pancreatitis complication: unspecified Pancreatitis type: other Qualified Code(s): K85.80 - Other acute pancreatitis without necrosis or infection Code(s): K85.90 - Acute pancreatitis without necrosis or infection, unspecified Status: Acute Assessment and Plan: CT abdomen and pelvis in the ER also showed a dilated cecum transposed into the mid abdomen through an apparent mesenteric defect, consistent with possible cecal volvulus or cecal bascule. Labs revealed a white blood cell count of 16,500 and lactic acid 1.5, continue to monitor keep NPO IV fluids Pain management with IV pain medications GI following General surgery following, treatment options were discussed by Dr. Pope. Decision was made to proceed with an exploratory laparotomy, possible bowel resection, possible cholecystectomy later today by Dr. Pope. 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 Pope (4) Bile duct stone: Code(s): K80.50 - Calculus of bile duct without cholangitis or cholecystitis without obstruction Status: Acute Assessment and Plan: Status post ERCP (5) Helicobacter positive gastritis: Code(s): K29.70 - Gastritis, unspecified, without bleeding; B96.81 - Helicobacter pylori [H. pylori] as the cause of diseases classified elsewhere Status: Acute Assessment and Plan: Treated (6) Upper abdominal pain: Code(s): R10.10 - Upper abdominal pain, unspecified Status: Acute Assessment and Plan: Likely secondary to all of the above Supportive care with fluids, pain medication and NG tube Subjective Date/time seen: 12/30/22 14:38 Interval history: Patient a 22-year-old female admitted for abdominal pain and N/V post ERCP. She has been sleeping at the bedside. On admission, she had a lipase level of 15,000. She was undergoing outpatient workup by GI for upper abdominal pain since September.? She was eventually found to have a distal common bile duct stone with cholelithiasis on an outpatient MRI of the abdomen. [place] [address], lactic acid 1.5, lipase 15,762, LFTs essentially unremarkable.? Chest x-ray negative.? CT of the abdomen and pelvis with IV contrast showed acute uncomplicated interstitial pancreatitis, mild esophagitis/gastritis, and dilated cecum transposed into the mid abdomen through an apparent mesenteric defect with twisting of the mesentery, possible cecal volvulus and cecal bascule. She received 2 L of IV fluid boluses in the ER.? She has been kept NPO and started on continuous IV fluids.?She was admitted on IV Rocephin, changed to IV Zosyn and metronidazole by surgery.?GI, Gen surg consulted and following. Due to more vomiting, NG tube has been placed. Plan is for general surgery exploratory lap later today. Review of Systems Review of Systems: nausea, vomiting, abdominal pain Exam Narrative: Const: sleeping, no acute distress HENMT: normocephalic and atraumatic, hearing grossly normal bilaterally Eyes: Equal, PERRLA Resp: no respiratory distress lung sounds clear to auscultation bilaterally Heart sounds: S1 normal heart sound present and S2 normal heart sound present, RRR Peripheral pulses: Peripheral pulses 2+ throughout GI: mild distention, Soft to palpation, generalized tenderness to palpation; No Guarding or rebound tenderness, normal bowel sounds Skin: normal color Neuro: no focal motor deficits Extrem:normal to inspection and no edema Psych: sleeping Const: Other: sleeping upon arrival to bedside Objective Data Vital Sig
[2022-12-30] MEDS: LACTATED RINGERS 1,000 ML 30 ML IV CONT ×3 (14:54→17:56)
--- NOTE | 2022-12-30 14:59 | WPDGICN ---
Assessment and Plan Assessment and plan (1) Post-ERCP acute pancreatitis: Code(s): K91.89 - Other postprocedural complications and disorders of digestive system; K85.90 - Acute pancreatitis without necrosis or infection, unspecified Status: Acute Assessment and Plan: bile duct stone removed successfully yesterday but unfortunately developed pancreatitis (she received indomethacin supp prior ercp with iv fluids) npo status, fluids and pain control also cholelithiasis- surgery on the case noted possible abnormal cecum, this will be assessed during surgery but clinical picture more consistent with pancreatitis (2) Abnormal CT scan, colon: Code(s): R93.3 - Abnormal findings on diagnostic imaging of other parts of digestive tract Status: Acute (3) Nausea and vomiting in adult: Code(s): R11.2 - Nausea with vomiting, unspecified Status: Acute Assessment and Plan: from pancreatitis (4) Status post endoscopic retrograde cholangiopancreatography: Code(s): Z98.890 - Other specified postprocedural states Status: Acute (5) Elevated liver enzymes: Code(s): R74.8 - Abnormal levels of other serum enzymes Status: Inactive Assessment and Plan: from recent pancreatitis monitor (6) Cholelithiasis: Code(s): K80.20 - Calculus of gallbladder without cholecystitis without obstruction Status: Acute GI Consult Note Consult date/time: 12/30/22 14:59 Reason for consult: pancreatitis post ercp, abdominal pain HPI: Caro Tom is a 22 year old female with previous ER visit after abdominal pain and elevated liver enzymes (normalized since and no more episodes) but MRCP showed small stone in bile duct and cholelithiasis. Recent EGD unremarkable but bx showed h pylori- treated. She came yesterday for outpatient ERCP, found small stone in bile duct and removed successfully after using balloon sweep with sphincterotomy. Pancretic duct was intubated few times but did not use contrast. She went home and developed upper abdominal pain with nausea and vomiting. CT abdomen and pelvis reviewed and showed a dilated cecum transposed into the mid abdomen through an apparent mesenteric defect, consistent with possible cecal volvulus or cecal bascule. Labs revealed a white blood cell count of 16,500 and lactic acid 1.5, also elevated liver enzymes with lipase c/w pancreatitis. She is still having abdominal pain and has tenderness throughout the entire abdomen on exam. NGT in place. Surgery on the case. Review of Systems Review of Systems: All systems reviewed & are unremarkable except as noted in HPI and below Constitutional: Constitutional: Reports no additional constitutional complaints, Denies chills, Denies fatigue and Denies fever(s) Eyes: Eyes: Reports no additional eye complaints ENT: Reports system reviewed and no additional complaints, except as documented and Denies dizziness Cardiovascular: Cardiovascular: Reports no additional cardiovascular complaints, Denies chest pain and Denies leg edema Respiratory: Respiratory: Reports no additional respiratory complaints, Denies cough and Denies dyspnea Gastrointestinal: Gastrointestinal: Reports as per HPI, Reports no additional gastrointestinal complaints, Reports abdominal pain, Denies melena, Denies hematochezia, Denies constipation, Denies diarrhea, Reports nausea, Reports vomiting and Denies hematemesis Comments: Status post ERCP 12/29/2022 Genitourinary: Genitourinary: Reports no additional female genitourinary complaints Musculoskeletal: Musculoskeletal: Reports no additional musculoskeletal complaints, Denies abnormal gait and Denies joint swelling Integumentary/Breasts: Skin/Breast: Reports system reviewed and no additional complaints, except as docu Neurologic: Reports system reviewed and no additional complaints, except as documented, Denies headache(s), Denies focal weakness, Denies numbness and
[2022-12-30 15:12] LABS: Beta HCG Quantitative < 2.39 mIU/ML
--- NOTE | 2022-12-30 15:21 | WPDHPUPDATE1 ---
History and Physical Update Update Date/Time: 12/30/22 15:21 History and Physical has been reviewed, including an updated exam of the patient. There are NO changes in the patient's condition. Risks, benefits, and alternatives have been discussed and questions answered. Patient agrees to proceed with procedure.
[2022-12-30 15:49] LABS: Lipase 11606 U/L (23-300)
[2022-12-30] MEDS: BUPivacaine HCL 0.5% PF 30 ML VIAL INFILTRATE (17:09)
[2022-12-30] MEDS: HYDROmorphone HCL INJ (*CRX) 1 MG/ML SYR IV PUSH (17:38)
--- NOTE | 2022-12-30 17:38 | W.PM.PROC2 ---
Procedure Note - Detailed Date of Procedure 12/30/22 Pre-op Diagnosis Post ERCP Pancreatitis and Cecal Volvulus Post-op Diagnosis Other (Acute pancreatitis, acute cholecystitis secondary to cholelithiasis) Procedure Performed Exploratory laparotomy with open cholecystectomy. Surgeon Fei Pope MD Shelter Supervisor Asif Helms, JADIEL and Heri DUVALL, and Juliette Olson NP-C Anesthesia General Indications Patient is a 22-year-old female who underwent a outpatient ERCP yesterday for common bile duct stone. She had extracted the stone but continued to have worsening pain and nausea and presented to the emergency room. In the emergency room she was found to have acute pancreatitis with a lipase level greater than 15,000. The CT scan of the abdomen showed swirling of the mesentery with transposition of the cecum to the midline and findings highly suggestive of a cecal volvulus or cecal bascule. Patient's white blood cell count was increasing and she had a fever and her pain upper abdomen was constant and so with the possibility of ischemic colon from a possible cecal volvulus she is being brought to the operating now for a emergent exploratory laparotomy. Findings Upon entering the abdomen there was some folding of the cecum on itself but no obvious evidence of a cecal volvulus. 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 No necrotic or ischemic bowel was noted. Quite a bit of dark bilious stained fluid was noted and edema S upon vacation of fat in the retroperitoneum so consistent with her pretty severe acute pancreatitis. Also noted was acute cholecystitis with thickening and edema of the gallbladder wall with redness and a gallstone which was impacted within the neck of the gallbladder. Description of Procedure After informed consent was obtained patient brought to the operating room she was placed supine position and general endotracheal anesthesia was administered. A Flaherty catheter was placed decompress the bladder and the abdomen was then prepped and draped usual sterile fashion. I then made a midline incision starting the mid epigastric region abdomen extending it to just below the umbilicus. Dissection was carried down through the subcutaneous tissues into the midline fascia was encountered at the umbilicus and then the midline fascia was divided to enter the abdomen. I then opened the fascia to mesh length the skin incision. I then placed retractors in the abdomen to explore the abdominal contents. On the right side of the abdomen there was dilation of the cecum with some folding of the cecum on itself but no obvious evidence of a cecal volvulus. The cecum and all the small bowel and ascending colon was viable without evidence of any ischemia. There was some bile-stained brownish fluid in the abdomen and there was edema of the retroperitoneum with some upon indication of fat consistent with her acute pretty severe pancreatitis. I then palpated the gallbladder and it was distended with acute inflammation and edema. Redness of the gallbladder and a gallstone impacted within the neck of the gallbladder. I then extended the incision more cephalad to get better exposure of the gallbladder. I then placed a bowel for retractor in the upper portion epigastric region of the abdomen for retraction. The tendon small bowel was packed when lower portion the abdomen laparotomy sponges. Deep retractors were used to hold back the bowel selective expose the gallbladder. I then held the gallbladder at the dome with a Peon clamp and then to dissect the gallbladder off the liver utilized electrocautery in a dome down fashion. Care was taken to dissect very carefully and not get into bleeding into the gallbladder fossa. Once I got down to the infundibular gallbladder I continue my dissection 1st laterally and then worked my way medially until I reached the cystic duct and cystic artery. I then skeletonized the cystic duct and artery and then placed a right angle clamp
[2022-12-30] MEDS: fentaNYL CITRATE INJ (*CRX) 100 MCG/2 ML VIAL 25 MCG IV PUSH ×4 (18:05→18:37)
--- NOTE | 2022-12-30 18:51 | PC.NURSE ---
Return from OR per bed 12/30/22 [id number].
[2022-12-30] MEDS: IBUPROFEN IV 800 MG/200 ML 800 MG/200 ML BAG 400 MG IVPB (19:47)
[2022-12-30] MEDS: FAMOTIDINE 20 MG/2 ML VIAL IV PUSH (19:54)
[2022-12-30] MEDS: MORPHINE SULFATE PCA (*CRX) 30 MG/30 ML SYR IV CONT (20:26)
[2022-12-31] VITALS (12 sets, daily range): BP systolic 100–120; BP diastolic 42–63; PULSE 82–118; RESP 16–24; TEMP 35.8–36.5; O2SAT 94–100
[2022-12-31] MEDS: PIPERACILLN/TAZ 3.375GM/NS50ML 3.375 GM/50 ML BAG IVPB ×5 (00:56→23:31)
[2022-12-31] MEDS: metroNIDAZOLE 500 MG/ISO 100ML 500 MG/100 ML BAG 100 MG IVPB ×3 (02:09→17:45)
[2022-12-31] MEDS: IBUPROFEN IV 800 MG/200 ML 800 MG/200 ML BAG 400 MG IVPB ×3 (02:12→17:08)
[2022-12-31] MEDS: SODIUM CHLORIDE 0.9% IV 1,000 ML 125 ML IV CONT ×2 (04:59→22:26)
[2022-12-31 06:17] LABS: Basophils Percent Auto 0.1 % (0.2-1.2); Hematocrit 37.1 % (37.0-47.0); Immature Granulocyte Absolute 0.12 K/mm3 (0.00-0.031); Immature Granulocyte Percent A 0.6 % (0-0.5); Lymphocytes Absolute Auto 0.91 K/mm3 (0.9-3.2); Lymphocytes Percent Auto 4.9 % (18.3-44.2); Mean Corpuscular HGB Conc 32.3 g/dl (32-36); Mean Corpuscular Hemoglobin 28.9 pg (26-34); Mean Corpuscular Volume 89.4 fl (80-100); Mean Platelet Volume 10.8 fl (7.4-10.4); Monocytes Absolute Auto 0.9 K/mm3 (0.1-0.6); Monocytes Percent Auto 4.9 % (2.6-8.5); Neutrophils Absolute Auto 16.6 K/mm3 (1.3-6.7); Neutrophils Percent Auto 89.5 % (45.5-73.1); Platelet Count Result 199 k/mm3 (150-375); Red Blood Count 4.15 M/mm3 (4.2-5.4); Red Cell Distribution Width 13.4 % (11.5-14.5); White Blood Count 18.5 K/mm3 (4.5-10.0)
[2022-12-31 06:28] LABS: Lactic Acid Reflex 1.4 mmol/L (0.7-2.0)
[2022-12-31 06:45] LABS: Anion Gap 6 mmol/L (8-16); Blood Urea Nitrogen 7 mg/dL (7-17); Calcium 7.4 mg/dL (8.4-10.2); Carbon Dioxide 23 mmol/L (22-30); Chloride 107 mmol/L (98-107); Estimated CRCL calculation 181 ml/min; Estimated Glomerular Filt Rate > 60; Glucose 108 mg/dL (65-110); Potassium 3.2 mmol/L (3.4-5.0); Sodium 136 mmol/L (137-145)
[2022-12-31 06:47] LABS: Lipase 2773 U/L (23-300)
[2022-12-31] MEDS: FAMOTIDINE 20 MG/2 ML VIAL IV PUSH ×2 (08:11→20:35)
[2022-12-31 09:50] LABS: Alanine Aminotransferase 207 U/L (6-35); Albumin Level 2.9 g/dL (3.5-5.1); Alkaline Phosphatase 106 U/L (38-126); Aspartate Amino Transferase 138 U/L (14-36); Bilirubin,Total 1.7 mg/dL (0.2-1.3)
--- NOTE | 2022-12-31 11:29 | PM.PNGS ---
Progress Note: A&P Assessment and Plan (1) Status post endoscopic retrograde cholangiopancreatography: Code(s): Z98.890 - Other specified postprocedural states Status: Acute Assessment and Plan: Common bile duct stone was extracted on ERCP electively as an outpatient. Unfortunately she developed post ERCP pancreatitis and was admitted to the hospital. Pancreatitis is improving supportive management. (2) Abnormal CT scan, colon: Code(s): R93.3 - Abnormal findings on diagnostic imaging of other parts of digestive tract Status: Acute Assessment and Plan: CT of the abdomen pelvis suggested possible cecal volvulus. Patient was taken to the operating room for evaluation of the bowel exploratory laparotomy and there was perhaps a cecal bascule but no full cecal volvulus. Time of surgery she was noted to have acute cholecystitis with impaction of a gallstone in the neck of the gallbladder. She went ahead and had an open cholecystectomy at that time. All the bowel was by a viable without any evidence of ischemia. (3) Post-ERCP acute pancreatitis: Code(s): K91.89 - Other postprocedural complications and disorders of digestive system; K85.90 - Acute pancreatitis without necrosis or infection, unspecified Status: Acute Assessment and Plan: Pancreatitis is improving. Her lipase level is now down to 2200. (4) Acute cholecystitis: Code(s): K81.0 - Acute cholecystitis Status: Acute Assessment and Plan: Patient had acute cholecystitis with impacted gallstone in neck of the gallbladder. Postop day 1 after exploratory laparotomy and open cholecystectomy. She is doing pretty well today. Nasogastric tube is removed and started on clear liquids. We will keep her on the morphine IT OPERATIONS SPECIALIST for today she has she is getting good pain control she has a large midline incision. GLADIS drain is nonbilious on output. Continue supportive management. Ambulate to chair as much as possible. Incentive spirometry for pulmonary toilet and SCDs for lower extremity DVT prophylaxis. Can go ahead and use Lovenox for chemical DVT prophylaxis. Subjective Subjective Date/Time Seen: 12/31/22 11:29 Interval history: Patient is postop day 1 after exploratory laparotomy and open cholecystectomy. She is doing pretty well today and her pain is well controlled with the IT OPERATIONS SPECIALIST. No nausea no flatus yet. Nasogastric tube output is low. Output from the right upper quadrant abdominal drain is blood tinged serous without any bile. Exam GI: Other: Abdomen is soft and mildly distended. Incision is dressed with a dry dressing. Expected tenderness to palpation around the incision. GLADIS drain right upper quadrant output is blood tinged serous without any dark green bile. Hypoactive bowel sounds. Objective Data Vital Signs Vital Signs: Vital Signs - 24 hr 12/30/22 14:58 12/30/22 17:29 12/30/22 17:44 Temperature 37.2 C 36.6 C Pulse Rate 101 H 106 H 99 Respiratory Rate 16 27 H 19 Blood Pressure 131/67 126/103 H 125/71 Pulse Oximetry 97 100 100 Oxygen Delivery Room Air Simple Face Mask Simple Face Mask Oxygen Flow Rate 6 6 Fraction of Inspired Oxygen 12/30/22 18:00 12/30/22 18:15 12/30/22 18:30 Temperature Pulse Rate 105 H 99 94 Respiratory Rate 25 H 18 18 Blood Pressure 141/75 H 131/83 140/73 Pulse Oximetry 98 99 99 Oxygen Delivery Nasal Cannula Nasal Cannula Nasal Cannula Oxygen Flow Rate 2 2 2 Fraction of Inspired Oxygen 12/30/22 18:55 12/30/22 19:11 12/30/22 20:26 Temperature 36.9 C Pulse Rate 92 88 Respiratory Rate 20 22 H 22 H Blood Pressure 148/85 H Pulse Oximetry 97 98 98 Oxygen Delivery Nasal Cannula Oxygen Flow Rate 2 Fraction of Inspired Oxygen 28 12/30/22 20:00 12/31/22 07:35 12/30/22 22:39 Temperature 36.6 C Pulse Rate 88 84 85 Respiratory Rate 22 H 20 20 Blood Pressure 136/78 Pulse Oximetry 98 98 98 Oxygen Delivery Nasal Cannula Nasal Cannul
--- NOTE | 2022-12-31 11:40 | P.PNIM_ITS ---
Progress Note: A&P Assessment and Plan (1) Acute pancreatitis: Qualifiers: Acute pancreatitis complication: unspecified Pancreatitis type: other Qualified Code(s): K85.80 - Other acute pancreatitis without necrosis or infection Code(s): K85.90 - Acute pancreatitis without necrosis or infection, unspecified Status: Acute Assessment and Plan: 12/30/22:(copied from chart) * CT abdomen and pelvis in the ER also showed a dilated cecum transposed into the mid abdomen through an apparent mesenteric defect, consistent with possible cecal volvulus or cecal bascule. * Labs revealed a white blood cell count of 16,500 and lactic acid 1.5, continue to monitor * keep NPO * IV fluids * Pain management with IV pain medications * GI following * General surgery following, treatment options were discussed by Dr. Poep. Decision was made to proceed with an exploratory laparotomy, possible bowel resection, possible cholecystectomy later today by Dr. Pope. 12/31/22: * Patient is postop day 1 exploratory laparotomy with open cholecystectomy * Patient continues with a morphine MANAGER OPERATING, pain is controlled * GI following * General surgery following * NG tube in place to low intermittent suction, bilious * Continue IV fluids * Will defer to General surgery team for advancement in diet * PT and OT ordered * Abdominal binder ordered * Encourage incentive spirometer 10 times per hour * Will order Lovenox for DVT prophylaxis, SCDs while in bed * Continue Zosyn and Flagyl (2) Cholelithiasis: Code(s): K80.20 - Calculus of gallbladder without cholecystitis without obstruction Status: Acute Assessment and Plan: 12/30/22:(copy from chart) * Status post ERCP * possible possible cholecystectomy per Dr. 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 Will defer to General surgery team for discontinuation and advancement in diet (4) Bile duct stone: Code(s): K80.50 - Calculus of bile duct without cholangitis or cholecystitis without obstruction Status: Acute Assessment and Plan: 12/30/22:(copied from chart) * Status post ERCP 12/31/22: * No change (5) Helicobacter positive gastritis: Code(s): K29.70 - Gastritis, unspecified, without bleeding; B96.81 - Helicobacter pylori [H. pylori] as the cause of diseases classified elsewhere Status: Acute Assessment and Plan: 12/30/22:(copied from chart) * Treated 12/31/22: * No change to current treatment plan (6) Upper abdominal pain: Code(s): R10.10 - Upper abdominal pain, unspecified Status: Acute Assessment and Plan: 12/30/22: * Likely secondary to all of the above * Supportive care with fluids, pain medication and NG tube 12/31/22: * Currently is on a morphine MANAGER OPERATING, will defer to General surgery team * Pain is well controlled Time Spent With Patient Time with patient: 25 - 35 minutes Subjective Date/time seen: 12/31/22 11:40 Interval history: 12/31/22: Interval history: This is a 22-year-old female who presented to the hospital on 12/29/2022 after having an ERCP done showing a common bile duct stone, abdominal pain, nausea, vomiting x3 days. Workup in the hospital included a CT of her abdomen was also
--- NOTE | 2022-12-31 11:40 | PM.IMPN ---
Progress Note: A&P Assessment and Plan (1) Acute pancreatitis: Qualifiers: Acute pancreatitis complication: unspecified Pancreatitis type: other Qualified Code(s): K85.80 - Other acute pancreatitis without necrosis or infection Code(s): K85.90 - Acute pancreatitis without necrosis or infection, unspecified Status: Acute Assessment and Plan: 12/30/22:(copied from chart) CT abdomen and pelvis in the ER also showed a dilated cecum transposed into the mid abdomen through an apparent mesenteric defect, consistent with possible cecal volvulus or cecal bascule. Labs revealed a white blood cell count of 16,500 and lactic acid 1.5, continue to monitor keep NPO IV fluids Pain management with IV pain medications GI following General surgery following, treatment options were discussed by Dr. Pope. Decision was made to proceed with an exploratory laparotomy, possible bowel resection, possible cholecystectomy later today by Dr. Pope. 12/31/22: Patient is postop day 1 exploratory laparotomy with open cholecystectomy Patient continues with a morphine EXTERNAL AUDITOR, pain is controlled GI following General surgery following NG tube in place to low intermittent suction, bilious Continue IV fluids Will defer to General surgery team for advancement in diet PT and OT ordered Abdominal binder ordered Encourage incentive spirometer 10 times per hour Will order Lovenox for DVT prophylaxis, SCDs while in bed Continue Zosyn and Flagyl (2) Cholelithiasis: Code(s): K80.20 - Calculus of gallbladder without cholecystitis without obstruction Status: Acute Assessment and Plan: 12/30/22:(copy from chart) Status post ERCP possible possible cholecystectomy per Dr. 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 Will defer to General surgery team for discontinuation and advancement in diet (4) Bile duct stone: Code(s): K80.50 - Calculus of bile duct without cholangitis or cholecystitis without obstruction Status: Acute Assessment and Plan: 12/30/22:(copied from chart) Status post ERCP 12/31/22: No change (5) Helicobacter positive gastritis: Code(s): K29.70 - Gastritis, unspecified, without bleeding; B96.81 - Helicobacter pylori [H. pylori] as the cause of diseases classified elsewhere Status: Acute Assessment and Plan: 12/30/22:(copied from chart) Treated 12/31/22: No change to current treatment plan (6) Upper abdominal pain: Code(s): R10.10 - Upper abdominal pain, unspecified Status: Acute Assessment and Plan: 12/30/22: Likely secondary to all of the above Supportive care with fluids, pain medication and NG tube 12/31/22: Currently is on a morphine EXTERNAL AUDITOR, will defer to General surgery team Pain is well controlled Time Spent With Patient Time with patient: 25 - 35 minutes Subjective Date/time seen: 12/31/22 11:40 Interval history: 12/31/22: Interval history: This is a 22-year-old female who presented to the hospital on 12/29/2022 after having an ERCP done showing a common bile duct stone, abdominal pain, nausea, vomiting x3 days. Workup in the hospital included a CT of her abdomen was also performed which shown mild esophagitis/gastritis, acute uncomplicated interstitial pancreatitis, dilated cecum is transposed into the mid abdomen through an apparent mesenteric defect accompanied by twisting of the mesentery which can be seen with cecal volvulus and cecal bascule. She also had a chest x-ray was which was negative for any cardiopulmonary process. General surgery seen patient and took patient to the OR yesterday 12/30/2022 for an exploratory laparotomy with
[2022-12-31 12:19] LABS: Alanine Aminotransferase 178 U/L (6-35); Albumin Level 2.9 g/dL (3.5-5.1); Alkaline Phosphatase 100 U/L (38-126); Anion Gap 3 mmol/L (8-16); Aspartate Amino Transferase 104 U/L (14-36); Bilirubin,Total 1.3 mg/dL (0.2-1.3); Blood Urea Nitrogen 7 mg/dL (7-17); Calcium 7.6 mg/dL (8.4-10.2); Carbon Dioxide 26 mmol/L (22-30); Chloride 107 mmol/L (98-107); Estimated CRCL calculation 181 ml/min; Estimated Glomerular Filt Rate > 60; Glucose 92 mg/dL (65-110); Potassium 3.2 mmol/L (3.4-5.0); Sodium 136 mmol/L (137-145)
[2022-12-31] MEDS: POTASSIUM CHLORIDE INJ 40 MEQ in SODIUM CHLORIDE 0.9% IV 500 ML 130 MEQ IVPB (12:26)
[2022-12-31] MEDS: MORPHINE SULFATE PCA (*CRX) 30 MG/30 ML SYR IV CONT (12:57)
--- NOTE | 2022-12-31 14:56 | WPDGIPROGNO ---
Progress Note: A&P Assessment and Plan (1) Post-ERCP acute pancreatitis: Code(s): K91.89 - Other postprocedural complications and disorders of digestive system; K85.90 - Acute pancreatitis without necrosis or infection, unspecified Status: Acute Assessment and Plan: medical care still npo status (2) Acute cholecystitis: Code(s): K81.0 - Acute cholecystitis Status: Acute Assessment and Plan: found cholecystitis as well s/p surgery pain meds (3) Nausea and vomiting in adult: Code(s): R11.2 - Nausea with vomiting, unspecified Status: Acute Assessment and Plan: improved (4) Upper abdominal pain: Code(s): R10.10 - Upper abdominal pain, unspecified Status: Acute (5) Elevated liver enzymes: Code(s): R74.8 - Abnormal levels of other serum enzymes Status: Inactive Assessment and Plan: trending down Subjective Date/time seen: 12/31/22 14:56 Interval history: s/p cholecysterctomy, still abdominal pain but relatively comfortable up in chair Review of Systems Review of Systems: All systems reviewed & are unremarkable except as noted in HPI and below Exam Const: General: no acute distress HENMT: Face/Nose/Sinus: Normal nares present Eyes: Sclera: sclerae normal Neck: Neck: supple Resp: Effort & Inspection: normal respiratory effort Cardio: Rate: regular rate GI: Other: Abdomen is soft and mildly distended. Incision is dressed with a dry dressing. Expected tenderness to palpation around the incision. GLADIS drain right upper quadrant output is blood tinged serous without any dark green bile. Hypoactive bowel sounds. Skin: General skin exam: normal color Neuro: Motor exam (neuro): 5/5 motor strength present throughout Extrem: General: normal to inspection Objective Data Vital Signs Vital Signs: Vital Signs - 24 hr 12/30/22 14:58 12/30/22 17:29 12/30/22 17:44 Temperature 98.9 F 97.8 F Pulse Rate 101 H 106 H 99 Respiratory Rate 16 27 H 19 Blood Pressure 131/67 126/103 H 125/71 Pulse Oximetry 97 100 100 Oxygen Delivery Room Air Simple Face Mask Simple Face Mask Oxygen Flow Rate 6 6 Fraction of Inspired Oxygen 12/30/22 18:00 12/30/22 18:15 12/30/22 18:30 Temperature Pulse Rate 105 H 99 94 Respiratory Rate 25 H 18 18 Blood Pressure 141/75 H 131/83 140/73 Pulse Oximetry 98 99 99 Oxygen Delivery Nasal Cannula Nasal Cannula Nasal Cannula Oxygen Flow Rate 2 2 2 Fraction of Inspired Oxygen 12/30/22 18:55 12/30/22 19:11 12/30/22 20:26 Temperature 98.4 F Pulse Rate 92 88 Respiratory Rate 20 22 H 22 H Blood Pressure 148/85 H Pulse Oximetry 97 98 98 Oxygen Delivery Nasal Cannula Oxygen Flow Rate 2 Fraction of Inspired Oxygen 12/30/22 20:00 12/31/22 07:35 12/30/22 22:39 Temperature 97.9 F Pulse Rate 88 84 85 Respiratory Rate 22 H 20 20 Blood Pressure 136/78 Pulse Oximetry 98 98 98 Oxygen Delivery Nasal Cannula Nasal Cannula Oxygen Flow Rate 2 1.5 Fraction of Inspired Oxygen 12/31/22 06:00 12/31/22 08:10 12/31/22 08:16 Temperature 96.4 F L Pulse Rate 82 Respiratory Rate 21 H 19 Blood Pressure 120/63 Pulse Oximetry 100 98 98 Oxygen Delivery Nasal Cannula Oxygen Flow Rate 1 Fraction of Inspired Oxygen 12/31/22 12:57 12/31/22 13:40 12/31/22 10:33 Temperature Pulse Rate Respiratory Rate 23 H 18 Blood Pressure Pulse Oximetry 98 96 Oxygen Delivery Room Air Oxygen Flow Rate Fraction of Inspired Oxygen 12/31/22 13:15 12/31/22 14:22 Temperature Pulse Rate Respiratory Rate 18 Blood Pressure Pulse Oximetry 99 Oxygen Delivery Nasal Cannula Oxygen Flow Rate 2 Fraction of Inspired Oxygen Intake/Output Intake/Output: Intake & Output 12/28/22 12/29/22 12/30/22 12/31/22 23:59 23:59 23:59 23:59 Intake Total 1000 3350 1776.9 Output Total 261 275 Balance 1000 3089 1501.9 Meds/Resul
[2022-12-31 22:06] LABS: Glucose Point of Care 111 mg/dl (65-105)
[2023-01-01] VITALS (11 sets, daily range): BP systolic 109–146; BP diastolic 54–78; PULSE 102–120; RESP 16–34; TEMP 36.5–37.6; O2SAT 93–99
[2023-01-01] MEDS: MORPHINE SULFATE (*CRX) 4 MG/ML INJ IV PUSH (00:08)
[2023-01-01] MEDS: metroNIDAZOLE 500 MG/ISO 100ML 500 MG/100 ML BAG 100 MG IVPB ×2 (00:09→08:49)
[2023-01-01] MEDS: IBUPROFEN IV 800 MG/200 ML 800 MG/200 ML BAG 400 MG IVPB ×3 (01:17→18:52)
[2023-01-01] MEDS: PIPERACILLN/TAZ 3.375GM/NS50ML 3.375 GM/50 ML BAG IVPB ×3 (05:41→17:11)
[2023-01-01 06:06] LABS: Basophils Percent Auto 0.2 % (0.2-1.2); Eosinophils Percent Auto 0.2 % (0-4.4); Hematocrit 36.7 % (37.0-47.0); Hemoglobin 11.5 g/dL (12.0-15.0); Immature Granulocyte Absolute 0.11 K/mm3 (0.00-0.031); Immature Granulocyte Percent A 0.6 % (0-0.5); Lymphocytes Absolute Auto 1.24 K/mm3 (0.9-3.2); Mean Corpuscular HGB Conc 31.3 g/dl (32-36); Mean Corpuscular Hemoglobin 28.5 pg (26-34); Mean Corpuscular Volume 91.1 fl (80-100); Mean Platelet Volume 10.7 fl (7.4-10.4); Monocytes Absolute Auto 0.7 K/mm3 (0.1-0.6); Monocytes Percent Auto 4.2 % (2.6-8.5); Neutrophils Absolute Auto 15.6 K/mm3 (1.3-6.7); Neutrophils Percent Auto 87.8 % (45.5-73.1); Platelet Count Result 177 k/mm3 (150-375); Red Blood Count 4.03 M/mm3 (4.2-5.4); Red Cell Distribution Width 13.3 % (11.5-14.5); White Blood Count 17.7 K/mm3 (4.5-10.0)
[2023-01-01 06:18] LABS: Alanine Aminotransferase 125 U/L (6-35); Albumin Level 2.9 g/dL (3.5-5.1); Alkaline Phosphatase 94 U/L (38-126); Anion Gap 4 mmol/L (8-16); Aspartate Amino Transferase 73 U/L (14-36); Bilirubin,Total 1.1 mg/dL (0.2-1.3); Blood Urea Nitrogen 3 mg/dL (7-17); Calcium 7.6 mg/dL (8.4-10.2); Carbon Dioxide 23 mmol/L (22-30); Chloride 106 mmol/L (98-107); Estimated CRCL calculation 181 ml/min; Estimated Glomerular Filt Rate > 60; Glucose 77 mg/dL (65-110); Lipase 1258 U/L (23-300); Potassium 3.2 mmol/L (3.4-5.0); Sodium 133 mmol/L (137-145)
[2023-01-01] MEDS: MORPHINE SULFATE PCA (*CRX) 30 MG/30 ML SYR IV CONT (07:17)
[2023-01-01] MEDS: FAMOTIDINE 20 MG/2 ML VIAL IV PUSH (08:49)
[2023-01-01] MEDS: ENOXAPARIN 40 MG/0.4 ML SYRINGE SUB-Q (08:49)
--- NOTE | 2023-01-01 11:17 | ECG_ITS ---
Measurements Intervals [place] Rate: 99 P: 50 CT: 140 QRS: 28 QRSD: 102 T: -5 QT: 330 QTc: 425 Interpretive Statements SINUS RHYTHM INCOMPLETE RIGHT BUNDLE BRANCH BLOCK [90+ ms QRS DURATION, TERMINAL R IN V1/V2, 40+ ms S IN I/aVL/V4/V5/V6] NONSPECIFIC ST ABNORMALITY BORDERLINE ECG NO PREVIOUS ECG AVAILABLE FOR COMPARISON Electronically Signed On 01-01-2023 14:46:05 CDT by Armando Escobar M.D.
--- NOTE | 2023-01-01 11:21 | PM.IMPN ---
Progress Note: A&P Assessment and Plan (1) Acute pancreatitis: Qualifiers: Acute pancreatitis complication: unspecified Pancreatitis type: other Qualified Code(s): K85.80 - Other acute pancreatitis without necrosis or infection Code(s): K85.90 - Acute pancreatitis without necrosis or infection, unspecified Status: Acute Assessment and Plan: Postop day 2 of exploratory laparotomy with open cholecystectomy -white blood cell count still elevated but lipase and liver enzymes are improving -patient was started on a clear liquid diet today -abdominal binder applied -Lovenox for DVT prophylaxis -continue Zosyn and Flagyl -patient has not had any fevers but is now tachycardic. This could be due to pain and deconditioning but will draw all blood cultures and lactic acid to be sure. no worsening infection/abscess suspected at this time but will monitor -continue IV fluids for now until patient has a better appetite (2) Tachycardia: Code(s): R00.0 - Tachycardia, unspecified Status: Acute Assessment and Plan: New overnight -could be due to deconditioning and pain but due to the change, will do CTA PE protocol and EKG -patient has no chest pain whatsoever, no troponins are echo needed at this time but may consider (3) Acute respiratory failure with hypoxia: Code(s): J96.01 - Acute respiratory failure with hypoxia Status: Acute Assessment and Plan: Patient has been on oxygen since the -she actually has decreased oxygen needs -when sitting up to go from the bed to the chair she desatted to 88% and felt short of breath with elevated RR rate. She is now tachycardic as well. 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 Patient does not have any pain out of proportion to exam -monitor (6) Bile duct stone: Code(s): K80.50 - Calculus of bile duct without cholangitis or cholecystitis without obstruction Status: Acute Assessment and Plan: During laparoscopic surgery- noted was acute cholecystitis with thickening and edema of the gallbladder wall with redness and a gallstone which was impacted within the neck of the gallbladder. -GI on board (7) Helicobacter positive gastritis: Code(s): K29.70 - Gastritis, unspecified, without bleeding; B96.81 - Helicobacter pylori [H. pylori] as the cause of diseases classified elsewhere Status: Acute Assessment and Plan: 12/30/22:(copied from chart) Treated 01/01/23: No change to current treatment plan Time Spent With Patient Time with patient: 25 - 35 minutes Subjective Date/time seen: 01/01/23 11:21 Interval history: Pt is a 22-year-old female here for pancreatitis, acute cholecystitis status post surgery. Patient was seen today and states she feels out of breath. She is on oxygen which helps. She denies chest pain. She has not really been up very much. She had a little bit of a popsicle earlier today and overall was doing okay. Nurse states overnight she became tachycardic which was thought to be due to pain and anxiety. Patient states she has no history of a blood clot and does not utilize hormones. Review of Systems Review of Systems: All systems reviewed & are unremarkable except as noted in HPI and below Exam Narrative: General: Well developed well nourished patient in NAD HEENT: normocephalic Neck: supple Neuro: Alert and oriented x
[2023-01-01] MEDS: POTASSIUM CHLORIDE 20 MEQ ER TABLET 40 MEQ PO (11:25)
[2023-01-01 11:53] LABS: Lactic Acid Reflex 0.8 mmol/L (0.7-2.0)
[2023-01-01 14:56] LABS: NT Pro B Type Natriuretic Pept 610 pg/mL (19.9-100); Troponin I < 0.012 ng/mL (0.000-0.034)
--- NOTE | 2023-01-01 15:24 | PM.PNGS ---
Progress Note: A&P Assessment and Plan (1) Acute cholecystitis: Code(s): K81.0 - Acute cholecystitis Status: Acute Assessment and Plan: Doing well postop. Pain is pretty much gone. I will decrease her SUPERVISOR CONTACT LENS morphine injections. Advanced to soft diet. Doing well (2) Post-ERCP acute pancreatitis: Code(s): K91.89 - Other postprocedural complications and disorders of digestive system; K85.90 - Acute pancreatitis without necrosis or infection, unspecified Status: Acute Assessment and Plan: Lipase down to 1258 today. Improving (3) Status post endoscopic retrograde cholangiopancreatography: Code(s): Z98.890 - Other specified postprocedural states Status: Acute Assessment and Plan: ERCP removed a distal common bile duct stone. (4) Tachycardia: Code(s): R00.0 - Tachycardia, unspecified Status: Acute Assessment and Plan: Discussed with arnaldo Murrayist. Chest CTA was negative for pulmonary embolism Subjective Subjective Date/Time Seen: 01/01/23 15:24 Post Op day: 2 Patient reports: feels better, pain is less (Denies having abdominal pain, wound is sensitive though.), tolerating liquids well and afebrile Review of Systems Review of Systems: All systems reviewed & are unremarkable except as noted in HPI and below (HPI) Exam Const: General: comfortable, no acute distress, alert and awake Nutritional Appearance: overweight Orientation/consciousness: patient oriented x3 GI: Inspection: non-distended, incision (Dry and healing well, tender) and other (GLADIS drain serosanguineous, blood-tinged, no bile) GI Palp: Yes Soft to palpation and Yes Tenderness to palpation present (GI) Auscultation: Hypoactive bowel sounds present Objective Data Vital Signs Vital Signs: Vital Signs - 24 hr 12/31/22 16:30 12/31/22 18:03 12/31/22 20:00 Temperature Pulse Rate 84 Respiratory Rate 20 22 H 22 H Blood Pressure Pulse Oximetry 99 94 94 Oxygen Delivery Room Air Oxygen Flow Rate Fraction of Inspired Oxygen 28 12/31/22 20:00 12/31/22 23:33 12/31/22 22:02 Temperature 36.5 C Pulse Rate 118 H Respiratory Rate 20 24 H 16 Blood Pressure 100/42 L Pulse Oximetry 95 94 95 Oxygen Delivery Oxygen Flow Rate Fraction of Inspired Oxygen 01/01/23 00:06 01/01/23 02:36 01/01/23 04:34 Temperature 37.0 C Pulse Rate 120 H 102 H Respiratory Rate 24 H 20 24 H Blood Pressure 146/78 H Pulse Oximetry 96 93 96 Oxygen Delivery Nasal Cannula Oxygen Flow Rate 3 Fraction of Inspired Oxygen 01/01/23 05:43 01/01/23 07:17 01/01/23 06:00 Temperature 36.7 C Pulse Rate 104 H Respiratory Rate 28 H 30 H 20 Blood Pressure 109/54 L Pulse Oximetry 98 97 98 Oxygen Delivery Oxygen Flow Rate Fraction of Inspired Oxygen 01/01/23 08:22 Temperature Pulse Rate 114 H Respiratory Rate 22 H Blood Pressure Pulse Oximetry 99 Oxygen Delivery Nasal Cannula Oxygen Flow Rate 3 Fraction of Inspired Oxygen 32 Intake/Output Intake/Output: Intake & Output 12/29/22 12/30/22 12/31/22 01/01/23 23:59 23:59 23:59 23:59 Intake Total 1000 3350 3655.9 771 Output Total 261 1455 900 Balance 1000 3089 2200.9 -129 Meds/Results Medications: Active Medications Generic Name Dose Route Start Last Admin Trade Name Freq PRN Reason Stop Dose Admin Acetaminophen 1,000 mg 12/30/22 04:07 Acetaminophen 500 Mg Tablet PO Q6H PRN Mild Pain (1-3) or Fever Enoxaparin Sodium 40 mg 01/01/23 09:00 01/01/23 08:49 Enoxaparin 40 Mg/0.4 Ml Syringe SUB-Q 40 mg DAILY MEERA Administration Famotidine 20 mg 12/30/22 21:00 01/01/23 08:49 Famotidine 20 Mg/2 Ml Vial IV PUSH 20 mg Q12HR MEERA Administration Piperacillin/Tazobactam/Dextrose 3.375 gm in 50 mls @ 100 mls/hr 12/30/22 09:00 01/01/23 11:54 Zosyn 3.375 Gm/Ns 50 Ml IVPB Infused Q6HR MEERA Infusion Metronidazole 500 mg in 100 mls @ 100 ml
--- NOTE | 2023-01-01 17:44 | WPDGIPROGNO ---
Progress Note: A&P Assessment and Plan (1) Post-ERCP acute pancreatitis: Code(s): K91.89 - Other postprocedural complications and disorders of digestive system; K85.90 - Acute pancreatitis without necrosis or infection, unspecified Status: Acute Assessment and Plan: medical care abdominal pain has improved and tolerating soft diet lipase and liver enzymes trending down (2) Acute cholecystitis: Code(s): K81.0 - Acute cholecystitis Status: Acute Assessment and Plan: found cholecystitis as well s/p surgery pain meds and abx (3) Nausea and vomiting in adult: Code(s): R11.2 - Nausea with vomiting, unspecified Status: Acute Assessment and Plan: this has improved (4) Upper abdominal pain: Code(s): R10.10 - Upper abdominal pain, unspecified Status: Acute (5) Elevated liver enzymes: Code(s): R74.8 - Abnormal levels of other serum enzymes Status: Inactive Assessment and Plan: trending down, now with normal bile ERCP few days ago removed bile duct stone Subjective Date/time seen: 01/01/23 17:44 Interval history: still with abdominal pain but better today, tolerating soft diet Review of Systems Review of Systems: All systems reviewed & are unremarkable except as noted in HPI and below Exam Const: General: comfortable, no acute distress, alert and awake Nutritional Appearance: overweight Orientation/consciousness: patient oriented x3 HENMT: Face/Nose/Sinus: Normal nares present Eyes: Sclera: sclerae normal Neck: Neck: supple Resp: Effort & Inspection: normal respiratory effort Cardio: Rate: regular rate GI: Inspection: non-distended, incision (Dry and healing well, tender) and other (GLADIS drain serosanguineous, blood-tinged, no bile) GI Palp: Yes Soft to palpation and Yes Tenderness to palpation present (GI) Auscultation: Hypoactive bowel sounds present Skin: General skin exam: normal color Neuro: Speech: normal speech Motor exam (neuro): 5/5 motor strength present throughout Extrem: General: normal to inspection Psych: Affect: Sad affect present Objective Data Vital Signs Vital Signs: Vital Signs - 24 hr 12/31/22 18:03 12/31/22 20:00 12/31/22 20:00 Temperature Pulse Rate 84 Respiratory Rate 22 H 22 H 20 Blood Pressure Pulse Oximetry 94 94 95 Oxygen Delivery Room Air Oxygen Flow Rate Fraction of Inspired Oxygen 28 12/31/22 23:33 12/31/22 22:02 01/01/23 00:06 Temperature 97.7 F 98.6 F Pulse Rate 118 H 120 H Respiratory Rate 24 H 16 24 H Blood Pressure 100/42 L 146/78 H Pulse Oximetry 94 95 96 Oxygen Delivery Oxygen Flow Rate Fraction of Inspired Oxygen 01/01/23 02:36 01/01/23 04:34 01/01/23 05:43 Temperature Pulse Rate 102 H Respiratory Rate 20 24 H 28 H Blood Pressure Pulse Oximetry 93 96 98 Oxygen Delivery Nasal Cannula Oxygen Flow Rate 3 Fraction of Inspired Oxygen 01/01/23 07:17 01/01/23 06:00 01/01/23 08:22 Temperature 98.0 F Pulse Rate 104 H 114 H Respiratory Rate 30 H 20 22 H Blood Pressure 109/54 L Pulse Oximetry 97 98 99 Oxygen Delivery Nasal Cannula Oxygen Flow Rate 3 Fraction of Inspired Oxygen 32 01/01/23 14:00 01/01/23 16:00 Temperature 97.7 F Pulse Rate 117 H 114 H Respiratory Rate 16 Blood Pressure 130/71 Pulse Oximetry 94 Oxygen Delivery Oxygen Flow Rate Fraction of Inspired Oxygen Intake/Output Intake/Output: Intake & Output 12/29/22 12/30/22 12/31/22 01/01/23 23:59 23:59 23:59 23:59 Intake Total 1000 3350 3655.9 871 Output Total 261 1455 900 Balance 1000 3089 2200.9 -29 Meds/Results Medications: Active Medications Generic Name Dose Route Start Last Admin Trade Name Freq PRN Reason Stop Dose Admin Acetaminophen 1,000 mg 12/30/22 04:07 Acetaminophen 500 Mg Tablet PO Q6H PRN Mild Pain (1-3) or Fever Enoxaparin Sodium 40 mg 01/01/23 09:00
--- NOTE | 2023-01-01 18:49 | PC.NURSE ---
Inspector And Tester offered patient tylenol PO to help with pain. She refused when they were brought to bedside saying she can't swallow medicine.
[2023-01-01 19:34] LABS: Hemoglobin 12.7 g/dL (12.0-15.0); Immature Platelet Fraction Pct 7.7 % (0.9-11.2); Mean Corpuscular HGB Conc 31.8 g/dl (32-36); Mean Corpuscular Hemoglobin 29.2 pg (26-34); Mean Platelet Volume 12.2 fl (7.4-10.4); Platelet Count Result 78 k/mm3 (150-375); Red Blood Count 4.35 M/mm3 (4.2-5.4); Red Cell Distribution Width 13.3 % (11.5-14.5); White Blood Count 21.9 K/mm3 (4.5-10.0)
[2023-01-01 19:57] LABS: Band Neutrophils Percent 4 % (0-6); Lymphocytes Absolute Manual 0.65 K/mm3 (1.1-4.5); Monocytes Absolute Manual 0.21 K/mm3 (0.1-0.90); Monocytes Percent Manual 1 % (3-9); Neutrophils Absolute Manual 21.02 K/mm3 (1.7-7.2); Neutrophils Percent Manual 92 % (46-73); Platelet Estimate Decreased (Adequate); Total Cells Counted 100
[2023-01-01 19:58] LABS: Hypochromasia 1+ (NORMAL); Schistocytes None Seen (NORMAL)
[2023-01-01] MEDS: FAMOTIDINE 20 MG TABLET PO (20:29)
[2023-01-02] VITALS (13 sets, daily range): BP systolic 123–142; BP diastolic 80–84; PULSE 14–117; RESP 18–91; TEMP 36.6–37; O2SAT 97–100
[2023-01-02] MEDS: MORPHINE SULFATE PCA (*CRX) 30 MG/30 ML SYR IV CONT (00:27)
[2023-01-02] MEDS: PIPERACILLN/TAZ 3.375GM/NS50ML 3.375 GM/50 ML BAG IVPB ×5 (00:28→23:17)
--- NOTE | 2023-01-02 06:17 | PC.NURSE ---
I have repeatedly encouraged pt to use her incentive spirometer she will not. Agata also encouraged her to hold a pillow and take deep breaths or try to breath normal. She says it hurts to do that so she will only take quick shallow breaths which keeps her respirations in the 30s. Overnight she stated that she wanted to sleep and she didn't think the INSURANCE CLAIMS REPRESENTATIVE pump was working. It flushes well and she has rated her pain between a 0-3.
[2023-01-02 07:28] LABS: Alanine Aminotransferase 87 U/L (6-35); Albumin Level 2.9 g/dL (3.5-5.1); Alkaline Phosphatase 92 U/L (38-126); Anion Gap 9 mmol/L (8-16); Aspartate Amino Transferase 45 U/L (14-36); Bilirubin,Total 0.9 mg/dL (0.2-1.3); Blood Urea Nitrogen 3 mg/dL (7-17); Calcium 7.9 mg/dL (8.4-10.2); Carbon Dioxide 20 mmol/L (22-30); Chloride 105 mmol/L (98-107); Estimated CRCL calculation 231 ml/min; Estimated Glomerular Filt Rate > 60; Glucose 98 mg/dL (65-110); Potassium 2.8 mmol/L (3.4-5.0); Sodium 134 mmol/L (137-145)
[2023-01-02 08:07] LABS: Hematocrit 33.8 % (37.0-47.0); Hemoglobin 10.7 g/dL (12.0-15.0); Mean Corpuscular HGB Conc 31.7 g/dl (32-36); Mean Corpuscular Hemoglobin 28.4 pg (26-34); Mean Corpuscular Volume 89.7 fl (80-100); Mean Platelet Volume 10.9 fl (7.4-10.4); Platelet Count Result 205 k/mm3 (150-375); Red Blood Count 3.77 M/mm3 (4.2-5.4); Red Cell Distribution Width 13.5 % (11.5-14.5); White Blood Count 17.9 K/mm3 (4.5-10.0)
[2023-01-02] MEDS: POTASSIUM CHLORIDE INJ 40 MEQ in SODIUM CHLORIDE 0.9% IV 500 ML 130 MEQ IVPB (08:11)
[2023-01-02] MEDS: MORPHINE SULFATE (*CRX) 4 MG/ML INJ IV PUSH ×2 (08:24→12:12)
[2023-01-02] MEDS: ENOXAPARIN 40 MG/0.4 ML SYRINGE SUB-Q (08:25)
[2023-01-02] MEDS: FAMOTIDINE 20 MG TABLET PO ×2 (08:25→20:37)
--- NOTE | 2023-01-02 09:12 | WPDGIPROGNO ---
Progress Note: A&P Assessment and Plan (1) Post-ERCP acute pancreatitis: Code(s): K91.89 - Other postprocedural complications and disorders of digestive system; K85.90 - Acute pancreatitis without necrosis or infection, unspecified Status: Acute Assessment and Plan: medical care still with abdominal pain CTA chest negative for PE she is anxious this morning but lipase and liver enzymes trending down (2) Acute cholecystitis: Code(s): K81.0 - Acute cholecystitis Status: Acute Assessment and Plan: found cholecystitis as well s/p surgery pain meds and abx (3) Nausea and vomiting in adult: Code(s): R11.2 - Nausea with vomiting, unspecified Status: Acute Assessment and Plan: diet as tolerated replacing low K (4) Upper abdominal pain: Code(s): R10.10 - Upper abdominal pain, unspecified Status: Acute (5) Elevated liver enzymes: Code(s): R74.8 - Abnormal levels of other serum enzymes Status: Inactive Assessment and Plan: trending down ERCP few days ago removed bile duct stone Subjective Date/time seen: 01/02/23 09:12 Interval history: she could not sleep as much because abdominal discomfort Review of Systems Review of Systems: All systems reviewed & are unremarkable except as noted in HPI and below Exam Const: General: alert and awake Nutritional Appearance: overweight Orientation/consciousness: patient oriented x3 Other: she is uncomfortable and anxious HENMT: Face/Nose/Sinus: Normal nares present Eyes: Sclera: sclerae normal Neck: Neck: supple Resp: Effort & Inspection: normal respiratory effort Cardio: Rate: regular rate GI: Inspection: non-distended and incision (Dry and healing well, tender) GI Palp: Yes Soft to palpation and Yes Tenderness to palpation present (GI) Skin: General skin exam: normal color Neuro: Speech: normal speech Motor exam (neuro): 5/5 motor strength present throughout Extrem: General: normal to inspection Psych: Affect: Sad affect present Objective Data Vital Signs Vital Signs: Vital Signs - 24 hr 01/01/23 14:00 01/01/23 16:00 01/01/23 20:00 Temperature 97.7 F 99.7 F H Pulse Rate 117 H 114 H 119 H Respiratory Rate 16 22 H Blood Pressure 130/71 135/75 Pulse Oximetry 94 97 Oxygen Delivery Oxygen Flow Rate 01/01/23 20:26 01/01/23 20:00 01/01/23 20:00 Temperature Pulse Rate 119 H Respiratory Rate 34 H Blood Pressure Pulse Oximetry 96 Oxygen Delivery Room Air Oxygen Flow Rate 01/02/23 00:00 01/02/23 00:27 01/02/23 05:23 Temperature 97.9 F Pulse Rate 105 H 103 H Respiratory Rate 32 H 28 H Blood Pressure 123/80 Pulse Oximetry 97 97 Oxygen Delivery Oxygen Flow Rate 01/02/23 04:00 01/02/23 06:45 Temperature Pulse Rate 114 H 101 H Respiratory Rate 22 H Blood Pressure Pulse Oximetry 97 Oxygen Delivery Nasal Cannula Oxygen Flow Rate 2 Intake/Output Intake/Output: Intake & Output 12/30/22 12/31/22 01/01/23 01/02/23 23:59 23:59 23:59 23:59 Intake Total 3350 3655.9 1187 114 Output Total 261 1455 2500 680 Balance 3089 2200.9 -1313 -566 Meds/Results Medications: Active Medications Generic Name Dose Route Start Last Admin Trade Name Freq PRN Reason Stop Dose Admin Acetaminophen 1,000 mg 12/30/22 04:07 Acetaminophen 500 Mg Tablet PO Q6H PRN Mild Pain (1-3) or Fever Enoxaparin Sodium 40 mg 01/01/23 09:00 01/02/23 08:25 Enoxaparin 40 Mg/0.4 Ml Syringe SUB-Q 40 mg DAILY MEERA Administration Famotidine 20 mg 01/01/23 21:00 01/02/23 08:25 Famotidine 20 Mg Tablet PO 20 mg Q12HR MEERA Administration Piperacillin/Tazobactam/Dextrose 3.375 gm in 50 mls @ 100 mls/hr 12/30/22 09:00 01/02/23 05:08 Zosyn 3.375 Gm/Ns 50 Ml IVPB 100 mls/hr Q6HR MEERA Administration Morphine Sulfate 30 mg in 30 mls @ 0 mls/hr 12/31/22 11:27 01/02/23 00:27 Morphine
--- NOTE | 2023-01-02 10:18 | PM.IMPN ---
Progress Note: A&P Assessment and Plan (1) Acute pancreatitis: Qualifiers: Acute pancreatitis complication: unspecified Pancreatitis type: other Qualified Code(s): K85.80 - Other acute pancreatitis without necrosis or infection Code(s): K85.90 - Acute pancreatitis without necrosis or infection, unspecified Status: Acute Assessment and Plan: Postop day 3 of exploratory laparotomy with open cholecystectomy -WBC count still elevated, but tredning down. lipase and liver enzymes are improving -patient was started on a low fiber diet, tolerating but lack of appetite due to pain -abdominal binder applied and in place -Lovenox for DVT prophylaxis -continue Zosyn and Flagyl -continues to be tachycardic. This could be due to pain and deconditioning blood cultures pending. no worsening infection/abscess suspected at this time but will monitor (2) Tachycardia: Code(s): R00.0 - Tachycardia, unspecified Status: Acute Assessment and Plan: day 2 -could be due to deconditioning and pain -CTA - negative for PE - ECHO ordered -denies chest pain, will continue to monitor (3) Acute respiratory failure with hypoxia: Code(s): J96.01 - Acute respiratory failure with hypoxia Status: Acute Assessment and Plan: Patient has been on oxygen since the -currently at 2L NC -patient has abdominal binder which also can prevent deep breaths, incentive spirometer at bedside -continue to wean oxygen as needed (4) Cholelithiasis: Code(s): K80.20 - Calculus of gallbladder without cholecystitis without obstruction Status: Acute Assessment and Plan: As above (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 Patient does not have any pain out of proportion to exam -monitor (6) Bile duct stone: Code(s): K80.50 - Calculus of bile duct without cholangitis or cholecystitis without obstruction Status: Acute Assessment and Plan: During laparoscopic surgery- noted was acute cholecystitis with thickening and edema of the gallbladder wall with redness and a gallstone which was impacted within the neck of the gallbladder. -GI on board (7) Helicobacter positive gastritis: Code(s): K29.70 - Gastritis, unspecified, without bleeding; B96.81 - Helicobacter pylori [H. pylori] as the cause of diseases classified elsewhere Status: Acute Assessment and Plan: 12/30/22:(copied from chart) Treated 01/01/23: No change to current treatment plan Subjective Date/time seen: 01/02/23 10:18 Interval history: Patient is a 22 YO female admitted for pancreatitis post ERCP, then treated for acute cholecystitis status post surgery.?Patient was in alot of pain this morning, even with the morphine pump. She apparently had a rough night?without much sleep. She is visibly in pain, cannot stop moving her legs and is groaning. She reports she has passed gas twice this morning, is tolerating liquids and some food without much appetite. She is on oxygen at 2L.? She denies chest pain, CT negative for PE yesterday.? She remains tachycardic. She has not really been up very much.? She is wearing her abdominal binder, upon inspection the GLADIS drain is intact and in place draining serosanguineous fluid. She denies N/V this morning. Her potassium dropped to 2.8 this morning, will replace with KCL in IV and continue to monitor. WBC count continues to drop. Creatinine is now at 0.3L. Will monitor closely and await . Appreciate Gen surg and GI recommendations. Review of Systems Review of Systems: All systems reviewed & are unremarkable except as noted in HPI and below Exam Narrative: General: Well developed well nourished patient in distress, mildly sweaty and visibly uncomfortable
[2023-01-02] MEDS: IBUPROFEN IV 800 MG/200 ML 800 MG/200 ML BAG 400 MG IVPB ×3 (11:05→23:14)
--- NOTE | 2023-01-02 12:04 | PM.PNGS ---
Progress Note: A&P Assessment and Plan (1) Diffuse abdominal pain: Code(s): R10.84 - Generalized abdominal pain Status: Acute Assessment and Plan: Patient reported no pain when I saw her yesterday. Sometime last night, the pain recurred and has been very severe. She has tried her DROP MACHINE OPERATOR and other ordered medications but the pain really did respond to those. Will get stat CT scan abdomen and pelvis with contrast to evaluate. Could be recurrent acute pancreatitis or possibly cecal volvulus. Incision looks good and no bile draining from GLADIS drain. Will make NPO except meds with sips and restart scheduled dose of IV ibuprofen. Will increase the amount of morphine given per DROP MACHINE OPERATOR as well. Further plans pending CT scan and labs. Will also get serum lipase. (2) Choledocholithiasis with acute cholecystitis: Code(s): K80.42 - Calculus of bile duct with acute cholecystitis without obstruction Status: Acute Assessment and Plan: ERCP 12/29/2022 Open cholecystectomy 12/30/2022. (3) Post-ERCP acute pancreatitis: Code(s): K91.89 - Other postprocedural complications and disorders of digestive system; K85.90 - Acute pancreatitis without necrosis or infection, unspecified Status: Acute Assessment and Plan: After distal common bile duct stone removed per ERCP, patient developed acute pancreatitis. (4) Status post endoscopic retrograde cholangiopancreatography: Code(s): Z98.890 - Other specified postprocedural states Status: Acute Assessment and Plan: 12/29/2022 with distal common bile duct stone removal (5) Tachycardia: Code(s): R00.0 - Tachycardia, unspecified Status: Acute Assessment and Plan: Persists. CTA of the chest yesterday was negative for pulmonary embolism. CT scan abdomen and pelvis today is pending. Subjective Subjective Date/Time Seen: 01/02/23 12:04 Post Op day: 3 Patient reports: other Interval history: Abdominal pain became worse last night and continues through this morning. She has tried her DROP MACHINE OPERATOR and other analgesics without relief. She has been unable to sleep due to pain. She has had no vomiting. Her ERCP was 12/29/2022. Her open cholecystectomy was 12/30/2022. Her CT scan on admission showed suggestion of a cecal volvulus as well as cholecystitis but at open surgery, there was no cecal volvulus possibly a cecal bascule. Yesterday she told me she had no abdominal pain. White blood cell count today is 17.9, slightly lower than the 21.9 yesterday. Low-grade fever of 37.6 centigrade at 8:00 p.m. last night otherwise afebrile. LFTs are slightly improved from yesterday. No lipase was ordered this morning. Review of Systems Review of Systems: All systems reviewed & are unremarkable except as noted in HPI and below (HPI) Exam Const: General: healthy appearing, no acute distress, alert, awake, uncomfortable and overweight Orientation/consciousness: No confusion GI: Inspection: non-distended, incision (Dry and healing well, GLADIS serosanguineous) and no visible herniation GI Palp: Yes abdominal tenderness (Diffuse tenderness particularly upper abdomen with guarding), Yes Firmness to palpation present (GI) and Yes Guarding due to palpation present (GI) Auscultation: absent bowel sounds Objective Data Vital Signs Vital Signs: Vital Signs - 24 hr 01/01/23 14:00 01/01/23 16:00 01/01/23 20:00 Temperature 36.5 C 37.6 C H Pulse Rate 117 H 114 H 119 H Respiratory Rate 16 22 H Blood Pressure 130/71 135/75 Pulse Oximetry 94 97 Oxygen Delivery Oxygen Flow Rate 01/01/23 20:26 01/01/23 20:00 01/01/23 20:00 Temperature Pulse Rate 119 H Respiratory Rate 34 H Blood Pressure Pulse Oximetry 96 Oxygen Delivery Room Air Oxygen Flow Rate 01/02/23 00:00 01/02/23 00:27 01/02/23 05:23 Temperature 36.6 C Pulse Rate 105 H 103 H Respiratory Rate 32 H 28 H Blood Pressure 123/80 Pulse Oximetry 97 97
[2023-01-02 13:32] LABS: Lipase 64 U/L (23-300)
[2023-01-02] MEDS: KCL 40 MEQ/D5/0.9% SOD CHL 1,000 ML 125 ML IV CONT ×2 (13:57→20:36)
[2023-01-02] MEDS: POTASSIUM CHLORIDE 20 MEQ ER TABLET 40 MEQ PO ×2 (13:58→17:26)
--- NOTE | 2023-01-02 14:04 | PC.NURSE ---
8576 - Patient reported feeling dizzy, VSS, A-O-4, on 3L with co2 monitor on. Patient reporting doesn't like how the morphine makes her feel, requested to turn off Morphine BUTT PRESSER. Have medication turned off to patient, physician notified.
[2023-01-02 18:08] LABS: Basophils Percent Auto 0.2 % (0.2-1.2); Eosinophils Absolute Auto 0.1 K/mm3 (0-0.3); Eosinophils Percent Auto 0.8 % (0-4.4); Hematocrit 34.2 % (37.0-47.0); Hemoglobin 11.1 g/dL (12.0-15.0); Immature Granulocyte Percent A 0.6 % (0-0.5); Lymphocytes Absolute Auto 1.11 K/mm3 (0.9-3.2); Mean Corpuscular HGB Conc 32.5 g/dl (32-36); Mean Corpuscular Hemoglobin 28.5 pg (26-34); Mean Corpuscular Volume 87.7 fl (80-100); Mean Platelet Volume 10.1 fl (7.4-10.4); Monocytes Absolute Auto 0.7 K/mm3 (0.1-0.6); Monocytes Percent Auto 4.4 % (2.6-8.5); Neutrophils Absolute Auto 13.7 K/mm3 (1.3-6.7); Platelet Count Result 202 k/mm3 (150-375); Red Cell Distribution Width 13.5 % (11.5-14.5); White Blood Count 15.8 K/mm3 (4.5-10.0)
[2023-01-02] MEDS: fentaNYL CITRATE INJ (*CRX) 100 MCG/2 ML VIAL 25 MCG IV PUSH (21:49)
[2023-01-03] VITALS (11 sets, daily range): BP systolic 123–145; BP diastolic 68–80; PULSE 80–93; RESP 18–21; TEMP 36.5–36.9; O2SAT 93–100
--- NOTE | 2023-01-03 | ECHO_ITS ---
Patient Info Name: Caro Tom Age: 22 years : 2000 Gender: Female Ht: 61 in Wt: 201 lbs BSA: 2.03 m2 HR: 88 bpm BP: 138 / 82 mmHg Heart Rhythm: Sinus Rhythm Technical Quality: Fair Exam Date: 01/03/2023 12:07 PM Exam Location: [facility] Pulmonary Exam Room: 346 Patient Status: Inpatient Admit Date: 12/29/2022 Staff Ordering Physician: Terri Stephens PA-C Center Punch Operator: Jasmyne Arguelles RDCS Attending Provider: Terri Stephens PA-C Referring Physician: Kat HAWKINS; Exam Type: CA echo doppler color flow Study Info Indications - elevated troponins Complete two-dimensional, color flow and Doppler transthoracic echocardiogram is performed. Summary 1. Complete two-dimensional, color flow and Doppler transthoracic echocardiogram is performed. 2. Unremarkable 2D and Doppler echocardiogram. Left Ventricle Left ventricular chamber dimension is normal. Left ventricular systolic function is normal, estimated at 65-70%. The left ventricular diastolic function is normal. Right Ventricle Right ventricular chamber dimension is normal. Left Atria Left atrial chamber dimension is normal. Right Atria Right atrial chamber dimension is normal. Aortic Valve The aortic valve is normal. Pulmonic Valve The pulmonic valve is not well visualized. Mitral Valve The mitral valve has normal leaflets. Tricuspid Valve The tricuspid valve leaflets are normal. Pericardium/Pleural The pericardium appears normal. Aorta The aortic root size at the sinus of Valsalva is normal. Left Ventricular Outflow Tract Name Value Normal LVOT 2D LVOT Diameter 2.0 cm LVOT Doppler LVOT Peak Gradient 6 mmHg LVOT Mean Gradient 3 mmHg LVOT VTI 22 cm LVOT VTI/AV VTI Ratio 0.7 LVOT Stroke Volume 72 ml LVOT CO 17.0 l/min LVOT CI 8.4 l/min/m2 Pulmonic Valve Name Value Normal PV Doppler PV Peak Gradient 4 mmHg Mitral Valve Name Value Normal MV Diastolic Function MV E Peak Velocity 121 cm/s MV A Peak Velocity 77 cm/s MV E/A 1.6 Tricuspid Valve Name Value Normal TV Regurgitation Doppler TR Peak Velocity 243 cm/s
[2023-01-03] MEDS: ONDANSETRON INJ 4 MG/2 ML VIAL IV PUSH (01:50)
[2023-01-03] MEDS: fentaNYL CITRATE INJ (*CRX) 100 MCG/2 ML VIAL 25 MCG IV PUSH (02:22)
[2023-01-03] MEDS: KCL 40 MEQ/D5/0.9% SOD CHL 1,000 ML 125 ML IV CONT ×2 (05:41→15:16)
[2023-01-03] MEDS: IBUPROFEN IV 800 MG/200 ML 800 MG/200 ML BAG 400 MG IVPB ×3 (05:41→17:35)
[2023-01-03] MEDS: PIPERACILLN/TAZ 3.375GM/NS50ML 3.375 GM/50 ML BAG IVPB ×3 (05:41→22:02)
[2023-01-03 08:39] LABS: Hemoglobin 10.6 g/dL (12.0-15.0); Mean Corpuscular HGB Conc 31.2 g/dl (32-36); Mean Corpuscular Hemoglobin 28.1 pg (26-34); Mean Corpuscular Volume 90.2 fl (80-100); Mean Platelet Volume 9.8 fl (7.4-10.4); Platelet Count Result 221 k/mm3 (150-375); Red Blood Count 3.77 M/mm3 (4.2-5.4); Red Cell Distribution Width 13.6 % (11.5-14.5); White Blood Count 14.9 K/mm3 (4.5-10.0)
[2023-01-03] MEDS: POTASSIUM CHLORIDE 20 MEQ PACKET (FOR LIQUID) 40 MEQ PO ×2 (09:54→16:16)
[2023-01-03] MEDS: FAMOTIDINE 20 MG TABLET PO ×2 (09:54→21:19)
[2023-01-03] MEDS: ENOXAPARIN 40 MG/0.4 ML SYRINGE SUB-Q (09:55)
[2023-01-03 11:20] LABS: Alanine Aminotransferase 62 U/L (6-35); Albumin Level 2.9 g/dL (3.5-5.1); Alkaline Phosphatase 86 U/L (38-126); Anion Gap 6 mmol/L (8-16); Aspartate Amino Transferase 36 U/L (14-36); Bilirubin,Total 0.8 mg/dL (0.2-1.3); Calcium 7.9 mg/dL (8.4-10.2); Carbon Dioxide 26 mmol/L (22-30); Chloride 107 mmol/L (98-107); Estimated CRCL calculation 231 ml/min; Estimated Glomerular Filt Rate > 60; Glucose 114 mg/dL (65-110); Potassium 3.3 mmol/L (3.4-5.0); Sodium 139 mmol/L (137-145)
[2023-01-03 11:56] LABS: Blood Urea Nitrogen < 2 mg/dL (7-17)
--- NOTE | 2023-01-03 12:27 | PM.IMPN ---
Progress Note: A&P Assessment and Plan (1) Acute pancreatitis: Qualifiers: Acute pancreatitis complication: unspecified Pancreatitis type: other Qualified Code(s): K85.80 - Other acute pancreatitis without necrosis or infection Code(s): K85.90 - Acute pancreatitis without necrosis or infection, unspecified Status: Acute Assessment and Plan: Postop day 3 of exploratory laparotomy with open cholecystectomy -WBC continues to trend down. lipase and liver enzymes are improving -patient back on full liquids, hopes to transition today -abdominal binder applied and in place -Lovenox for DVT prophylaxis -continue Zosyn and Flagyl -tachycardia resolved with pain control -blood cultures pending. no worsening infection/abscess suspected at this time but will monitor (2) Tachycardia: Code(s): R00.0 - Tachycardia, unspecified Status: Acute Assessment and Plan: resolved for now with better pain control -CTA - negative for PE - ECHO ordered -denies chest pain, will continue to monitor -continue with tele (3) Acute respiratory failure with hypoxia: Code(s): J96.01 - Acute respiratory failure with hypoxia Status: Acute Assessment and Plan: Patient has been on oxygen since the -currently at 2L NC -patient has abdominal binder which also can prevent deep breaths, incentive spirometer at bedside and encouraged frequent use -continue to wean oxygen as needed -CT scan on 01/02 showed pleural effusions and atelectasis, currently asymptomatic, will continue to monitor (4) Cholelithiasis: Code(s): K80.20 - Calculus of gallbladder without cholecystitis without obstruction Status: Acute Assessment and Plan: As above (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 Patient does not have any pain out of proportion to exam -monitor (6) Bile duct stone: Code(s): K80.50 - Calculus of bile duct without cholangitis or cholecystitis without obstruction Status: Acute Assessment and Plan: During laparoscopic surgery- noted was acute cholecystitis with thickening and edema of the gallbladder wall with redness and a gallstone which was impacted within the neck of the gallbladder. -GI on board (7) Helicobacter positive gastritis: Code(s): K29.70 - Gastritis, unspecified, without bleeding; B96.81 - Helicobacter pylori [H. pylori] as the cause of diseases classified elsewhere Status: Acute Assessment and Plan: 12/30/22:(copied from chart) Treated 01/01/23: No change to current treatment plan Subjective Date/time seen: 01/03/23 12:27 Interval history: Patient is a 22 YO female admitted for pancreatitis post ERCP, then treated for acute cholecystitis status post surgery.?Patient was tearful this morning, as she has much more pain at night. She felt her pain was controlled this morning, but doesn't understand why it gets worse during the night. She is better controlled with the IV ibuprofen. She had a rough night?without much sleep. She reports she has passed gas and took a shower with some assistance this morning. She is tolerating liquids and jello. She is on oxygen at 2L.? She denies chest pain, CT negative for PE yesterday.?Tachycardia has resolved since pain is better controlled. She has not really been up very much.? She is wearing her abdominal binder, upon inspection the GLADIS drain is intact and in place draining serosanguineous fluid. She denies N/V this morning. Her potassium with KCL in IV infusing and will continue to monitor. WBC count continues to drop. Creatinine is now at 0.3L. Will monitor closely and await . Appreciate Gen surg and GI recommendations. Review of Systems Review of Systems: All systems reviewed & are unremar
--- NOTE | 2023-01-03 14:40 | WPDGIPROGNO ---
Progress Note: A&P Assessment and Plan (1) Post-ERCP acute pancreatitis: Code(s): K91.89 - Other postprocedural complications and disorders of digestive system; K85.90 - Acute pancreatitis without necrosis or infection, unspecified Status: Acute Assessment and Plan: medical care abdominal pain is improving normalization of lipase and liver enzymes improved (2) Acute cholecystitis: Code(s): K81.0 - Acute cholecystitis Status: Acute Assessment and Plan: found cholecystitis as well s/p surgery pain meds tolerating diet (3) Nausea and vomiting in adult: Code(s): R11.2 - Nausea with vomiting, unspecified Status: Acute Assessment and Plan: diet as tolerated replaced low K (4) Upper abdominal pain: Code(s): R10.10 - Upper abdominal pain, unspecified Status: Acute (5) Elevated liver enzymes: Code(s): R74.8 - Abnormal levels of other serum enzymes Status: Inactive Assessment and Plan: trending down ERCP few days ago removed bile duct stone Subjective Date/time seen: 01/03/23 14:40 Interval history: overall better, pain is mostly at bedtime, no nausea, eating but still appetite not back to normal Review of Systems Review of Systems: All systems reviewed & are unremarkable except as noted in HPI and below Exam Const: General: healthy appearing, no acute distress, alert, awake, uncomfortable and overweight Orientation/consciousness: No confusion HENMT: Face/Nose/Sinus: Normal nares present Eyes: Sclera: sclerae normal Neck: Neck: supple Resp: Effort & Inspection: normal respiratory effort Cardio: Rate: regular rate GI: Inspection: non-distended, incision (Dry and healing well, GLADIS serosanguineous) and no visible herniation GI Palp: Yes abdominal tenderness (Diffuse tenderness particularly upper abdomen with guarding) and Yes Tenderness to palpation present (GI) (less tender) Auscultation: normal bowel sounds Skin: General skin exam: normal color Neuro: Speech: normal speech Motor exam (neuro): 5/5 motor strength present throughout Extrem: General: normal to inspection Psych: Mental Status: mental status grossly normal Objective Data Vital Signs Vital Signs: Vital Signs - 24 hr 01/02/23 16:00 01/02/23 20:15 01/02/23 20:00 Temperature 98.6 F Pulse Rate 93 90 95 Respiratory Rate 18 Blood Pressure 138/82 Pulse Oximetry 100 Oxygen Delivery Oxygen Flow Rate Fraction of Inspired Oxygen 01/02/23 20:00 01/03/23 00:00 01/03/23 04:00 Temperature Pulse Rate 81 88 Respiratory Rate Blood Pressure Pulse Oximetry 98 Oxygen Delivery Nasal Cannula Oxygen Flow Rate 3 Fraction of Inspired Oxygen 01/02/23 22:15 01/02/23 22:50 01/03/23 06:00 Temperature 97.7 F Pulse Rate 81 Respiratory Rate 18 Blood Pressure 123/68 Pulse Oximetry 98 98 99 Oxygen Delivery Nasal Cannula Nasal Cannula Oxygen Flow Rate 3 2 Fraction of Inspired Oxygen 01/03/23 09:12 01/03/23 09:31 01/03/23 08:00 Temperature Pulse Rate Respiratory Rate Blood Pressure Pulse Oximetry 96 93 93 Oxygen Delivery Nasal Cannula Room Air Room Air Oxygen Flow Rate 1 Fraction of Inspired Oxygen 24 21 01/03/23 08:00 01/03/23 12:00 Temperature Pulse Rate 83 80 Respiratory Rate Blood Pressure Pulse Oximetry Oxygen Delivery Oxygen Flow Rate Fraction of Inspired Oxygen Intake/Output Intake/Output: Intake & Output 12/31/22 01/01/23 01/02/23 01/03/23 23:59 23:59 23:59 23:59 Intake Total 3655.9 1387 2434 1860 Output Total 1455 2500 705 1020 Balance 2200.9 -1113 1729 840 Meds/Results Medications: Active Medications Generic Name Dose Route Start Last Admin Trade Name Freq PRN Reason Stop Dose Admin Acetaminophen 1,000 mg 12/30/22 04:07 Acetaminophen 500 Mg Tablet PO Q6H PRN Mild Pain (1-3) or Fever Diazepam 5 mg 01/03/23 09:
--- NOTE | 2023-01-03 15:31 | PM.PNGS ---
Progress Note: A&P Assessment and Plan (1) Diffuse abdominal pain: Code(s): R10.84 - Generalized abdominal pain Status: Acute Assessment and Plan: Patient's abdominal pain somewhat improved today. She feels her abdominal pain is worse at night. No concerning acute findings on the repeat CT abd/pelvis yesterday. Lipase normal and labs overall improving. Still with hypokalemia this morning that is being replaced with oral potassium. Will continue the IV Ibuprofen which has seemed to help the most and add some additional options for pain control. IV Valium added every 12 hours as well. Incision healing well. Continue to monitor GLADIS drain. (2) Post-ERCP acute pancreatitis: Code(s): K91.89 - Other postprocedural complications and disorders of digestive system; K85.90 - Acute pancreatitis without necrosis or infection, unspecified Status: Acute Assessment and Plan: Resolving. Lipase normalized yesterday. Advanced to a regular diet today. Continue to monitor. (3) Status post endoscopic retrograde cholangiopancreatography: Code(s): Z98.890 - Other specified postprocedural states Status: Acute Assessment and Plan: 12/29/2022 with distal common bile duct stone removal (4) Choledocholithiasis with acute cholecystitis: Code(s): K80.42 - Calculus of bile duct with acute cholecystitis without obstruction Status: Acute Assessment and Plan: S/p ERCP on 12/29 and exploratory laparotomy with open cholecystectomy on 12/30. (5) Tachycardia: Code(s): R00.0 - Tachycardia, unspecified Status: Acute Assessment and Plan: Tachycardia improved. CTA chest negative for PE. Continue to monitor. Echo pending. Could have been pain related. Plan I have discussed the patient's case and plan of care with Dr. Pope. Subjective Subjective Date/Time Seen: 01/03/23 15:31 Post Op day: 4 (Exploratory laparotomy with open cholecystectomy) Patient reports: no new complaints, tolerating liquids well, flatus, no bowel movement and afebrile Interval history: Chart reviewed since last seen. Patient doing well today. She denies much incisional pain, just has some soreness when getting up. Her main complaint is neck soreness. She is tolerating liquids and denies any nausea or vomiting. She has walked in her room and is tolerating this well. No other complaints at this time. She feels very nervous. Review of Systems Review of Systems: All systems reviewed & are unremarkable except as noted in HPI and below Constitutional: Constitutional: Reports as per HPI, Reports no additional constitutional complaints, Denies chills, Denies fever(s) and Denies headache(s) Cardiovascular: Cardiovascular: Reports no additional cardiovascular complaints, Denies chest pain and Denies leg edema Respiratory: Respiratory: Reports no additional respiratory complaints, Denies cough and Denies dyspnea Gastrointestinal: Gastrointestinal: Reports as per HPI and Reports no additional gastrointestinal complaints Neurologic: Reports system reviewed and no additional complaints, except as documented, Denies Abnormal speech present, Denies headache(s) and Denies focal weakness Exam Const: General: uncomfortable Orientation/consciousness: patient oriented x3 GI: Inspection: non-distended, incision (midline incision dry and marisela intact, no erythema or drainage) and other (GLADIS drain with mostly serous fluid) GI Palp: Yes Soft to palpation, Yes Tenderness to palpation present (GI) (minimal expected tenderness near incision) and No Guarding due to palpation present (GI) Auscultation: normal bowel sounds Neuro: General: moves all extremities Extrem: General: no calf tenderness and no edema Psych: Mental Status: mental status grossly normal Insight: Good insight present (Psych) Objective Data Vital Signs Vital Signs: Vital Signs - 24 hr 01/02/23 16:00 01/02/23 20:15 01/02/23 20:00 Temperature 98
[2023-01-03] MEDS: HYDROcodone/acetaminophen (*CRX) 5-325 MG TABLET 1 TAB PO (16:16)
[2023-01-03 19:21] LABS: Basophils Percent Auto 0.3 % (0.2-1.2); Eosinophils Absolute Auto 0.2 K/mm3 (0-0.3); Eosinophils Percent Auto 1.2 % (0-4.4); Hematocrit 35.2 % (37.0-47.0); Hemoglobin 11.3 g/dL (12.0-15.0); Immature Granulocyte Percent A 1.5 % (0-0.5); Lymphocytes Absolute Auto 1.49 K/mm3 (0.9-3.2); Lymphocytes Percent Auto 11.1 % (18.3-44.2); Mean Corpuscular HGB Conc 32.1 g/dl (32-36); Mean Corpuscular Hemoglobin 28.1 pg (26-34); Mean Corpuscular Volume 87.6 fl (80-100); Mean Platelet Volume 10.5 fl (7.4-10.4); Monocytes Absolute Auto 0.8 K/mm3 (0.1-0.6); Monocytes Percent Auto 5.7 % (2.6-8.5); Neutrophils Absolute Auto 10.8 K/mm3 (1.3-6.7); Neutrophils Percent Auto 80.2 % (45.5-73.1); Nucleated Red Blood Cells Perc 0.1 % (0.0-0.2); Platelet Count Result 266 k/mm3 (150-375); Red Blood Count 4.02 M/mm3 (4.2-5.4); Red Cell Distribution Width 13.6 % (11.5-14.5); White Blood Count 13.5 K/mm3 (4.5-10.0)
[2023-01-03] MEDS: DOCUSATE SODIUM 100 MG CAPSULE PO (21:19)
[2023-01-04] VITALS: PULSE 105
[2023-01-04] MEDS: IBUPROFEN IV 800 MG/200 ML 800 MG/200 ML BAG 400 MG IVPB ×3 (00:16→11:38)
[2023-01-04] MEDS: diazePAM INJ (*CRX) 10 MG/2 ML SYRINGE 5 MG IV PUSH (00:18)
[2023-01-04 04:00] VITALS: PULSE 85
[2023-01-04] MEDS: PIPERACILLN/TAZ 3.375GM/NS50ML 3.375 GM/50 ML BAG IVPB ×2 (05:26→09:35)
[2023-01-04 06:00] VITALS: BP 108/61; PULSE 81; RESP 20; TEMP 37; O2SAT 98
[2023-01-04 07:17] LABS: Alanine Aminotransferase 53 U/L (6-35); Albumin Level 3.1 g/dL (3.5-5.1); Alkaline Phosphatase 84 U/L (38-126); Anion Gap 4 mmol/L (8-16); Aspartate Amino Transferase 33 U/L (14-36); Bilirubin,Total 0.9 mg/dL (0.2-1.3); Blood Urea Nitrogen 2 mg/dL (7-17); Carbon Dioxide 27 mmol/L (22-30); Chloride 106 mmol/L (98-107); Estimated CRCL calculation 181 ml/min; Estimated Glomerular Filt Rate > 60; Glucose 88 mg/dL (65-110); Potassium 3.3 mmol/L (3.4-5.0); Sodium 137 mmol/L (137-145)
[2023-01-04 08:00] VITALS: PULSE 71
[2023-01-04] MEDS: POTASSIUM CHLORIDE 20 MEQ PACKET (FOR LIQUID) 40 MEQ PO (09:34)
[2023-01-04] MEDS: FAMOTIDINE 20 MG TABLET PO (09:34)
[2023-01-04] MEDS: DOCUSATE SODIUM 100 MG CAPSULE PO (09:34)
[2023-01-04] MEDS: ENOXAPARIN 40 MG/0.4 ML SYRINGE SUB-Q (09:34)
[2023-01-04 12:00] VITALS: PULSE 79
--- NOTE | 2023-01-04 13:40 | PM.PNGS ---
Progress Note: A&P Assessment and Plan (1) Diffuse abdominal pain: Code(s): R10.84 - Generalized abdominal pain <DAVID Jha - Last Filed: 01/04/23 15:35> Status: Acute <DAVID Jha - Last Filed: 01/04/23 15:35> Assessment and Plan: Postop day 5 exploratory laparotomy with open cholecystectomy. Continue to improve and abdominal pain is much more controlled today. She is only taking IV Ibuprofen scheduled and had one dose of IV Valium last night. Switched to oral Ibuprofen this morning. Tolerating activity and tolerating a diet. Bowel function returned. The patient is surgically stable to be discharged today if she is medically stable. Will have her follow-up in [address] Pope for staple removal. Will remove GLADIS drain prior to discharge. <DAVID Jha - Last Filed: 01/04/23 15:35> Postop day 5 exploratory laparotomy with open cholecystectomy. Continue to improve and abdominal pain is much more controlled today. She is only taking IV Ibuprofen scheduled and had one dose of IV Valium last night. Switched to oral Ibuprofen this morning. Tolerating activity and tolerating a diet. Bowel function returned. The patient is surgically stable to be discharged today if she is medically stable. Will have her follow-up in [address] Pope for staple removal. Will remove GLADIS drain prior to discharge. I have personally seen and evaluated the patient today with [facility]OST.? ? I have reviewed any new relevant radiographic and laboratory results.? I have reviewed the dunlap elements of the patient's current surgical or medical problems and I have personally performed a substantive portion of the care for this patient.? I personally performed the pertinent physical exam and reviewed and confirmed the patient's medicine list.? ? I have formulated the surgical care plan and I agree with the documented note above. Patient is doing well. GLADIS drain is only having minimal output which is non bilious. She is tolerating regular diet. Pain is better with the addition of some Valium for muscle spasms. She has also had bowel movements. We will go ahead and discharge her home after removing the drain today. She can come back to the office see me in 7 to 10 days for staple removal in the office. She is instructed not to lift anything more than 5 to 10 lb for the next 4 to 6 weeks. <Fei Pope MD - Last Filed: 01/04/23 16:02> (2) Post-ERCP acute pancreatitis: Code(s): K91.89 - Other postprocedural complications and disorders of digestive system; K85.90 - Acute pancreatitis without necrosis or infection, unspecified <Emily B. Tomamutmadan, F[employer] BLOWING MACHINE OPERATOR - Last Filed: 01/04/23 15:35> Status: Acute <Emily B. Wasmuth, FUR BLOWING MACHINE OPERATOR - Last Filed: 01/04/23 15:35> Assessment and Plan: Resolved <Emily B. Wasmuth, F[employer] BLOWING MACHINE OPERATOR - Last Filed: 01/04/23 15:35> (3) Status post endoscopic retrograde cholangiopancreatography: Code(s): Z98.890 - Other specified postprocedural states <Emily B. Wasmuth, FUR BLOWING MACHINE OPERATOR - Last Filed: 01/04/23 15:35> Status: Acute <Emily B. Wasmuth, FUR BLOWING MACHINE OPERATOR - Last Filed: 01/04/23 15:35> Assessment and Plan: 12/29/2022 with distal common bile duct stone removal <Emily B. Wasmuth, FUR BLOWING MACHINE OPERATOR - Last Filed: 01/04/23 15:35> (4) Choledocholithiasis with acute cholecystitis: Code(s): K80.42 - Calculus of bile duct with acute cholecystitis without obstruction <Emily B. Wasmutmadan, F[employer] BLOWING MACHINE OPERATOR - Last Filed: 01/04/23 15:35> Status: Acute <Emily B. Wasmuth, FUR BLOWING MACHINE OPERATOR - Last Filed: 01/04/23 15:35> Assessment and Plan: S/p ERCP on 12/29 and exploratory laparotomy with open cholecystectomy on 12/30. <Emily B. Wasmuth, FUR BLOWING MACHINE OPERATOR - Last Filed: 01/04/23 15:35> (5) Tachycardia: Code(s): R00.0 - Tachycardia, unspecified <Emily B. Wasmuth, FUR BLOWING MACHINE OPERATOR - Last Filed: 01/04/23 15:35> Status: Acute <Emily B. Wasmuth, FUR BLOWING MACHINE OPERATOR - Last Filed: 01/04/23 15:35> Assessment and Plan: Improved since
[2023-01-04 14:00] VITALS: BP 129/79; PULSE 85; RESP 16; TEMP 36.4; O2SAT 99
[2023-01-04 15:07] LABS: Magnesium 1.9 mg/dL (1.6-2.3)
--- NOTE | 2023-01-04 15:26 | PM.DS ---
DS: Admitting Diagnosis Discharge Date 01/04/23 Admitting Diagnosis acute pancreatitis DS: Discharge Diagnosis Discharge Diagnosis (1) Acute pancreatitis: Qualifiers: Acute pancreatitis complication: unspecified Pancreatitis type: other Qualified Code(s): K85.80 - Other acute pancreatitis without necrosis or infection Code(s): K85.90 - Acute pancreatitis without necrosis or infection, unspecified Status: Acute Assessment and Plan: Postop day 5 of exploratory laparotomy with open cholecystectomy -WBC continues to trend down. lipase and liver enzymes are improving -patient tolerating regular diet -abdominal binder applied and in place -tachycardia resolved with pain control -blood cultures pending. no worsening infection/abscess suspected at this time but will f/u (2) Tachycardia: Code(s): R00.0 - Tachycardia, unspecified Status: Acute Assessment and Plan: resolved for now with better pain control (3) Acute respiratory failure with hypoxia: Code(s): J96.01 - Acute respiratory failure with hypoxia Status: Acute Assessment and Plan: Patient has now on room air, satting fine with no signs of distress or dyspnea -patient has abdominal binder which also can prevent deep breaths, incentive spirometer at bedside and encouraged frequent use -CT scan on 01/02 showed pleural effusions and atelectasis, currently asymptomatic (4) Cholelithiasis: Code(s): K80.20 - Calculus of gallbladder without cholecystitis without obstruction Status: Acute Assessment and Plan: As above (5) Bile duct stone: Code(s): K80.50 - Calculus of bile duct without cholangitis or cholecystitis without obstruction Status: Acute Assessment and Plan: During laparoscopic surgery- noted was acute cholecystitis with thickening and edema of the gallbladder wall with redness and a gallstone which was impacted within the neck of the gallbladder. -GI on board (6) Helicobacter positive gastritis: Code(s): K29.70 - Gastritis, unspecified, without bleeding; B96.81 - Helicobacter pylori [H. pylori] as the cause of diseases classified elsewhere Status: Acute Assessment and Plan: 12/30/22:(copied from chart) Treated DS: Summary Hospital Course Hospital Course: Postop day 5 exploratory laparotomy with open cholecystectomy. Continue to improve and abdominal pain is much more controlled today. She is only taking IV Ibuprofen scheduled and had one dose of IV Valium last night. Switched to oral Ibuprofen this morning. Tolerating activity and tolerating a diet. Bowel function returned. Patient is cleared by Dr. Pope for discharge today and medically stable to return home. She is to follow-up in [address] Pope for staple removal. GLADIS drain to be removed prior to leaving today. Encouraged use of abdominal binder and walking as tolerated. She will go home to her family tonight. Status at Discharge Functional status at discharge: independent ambulation Overall status at discharge: patient is progressing back to baseline Time Spent with Patient Time attestation: Total time spent providing and/or coordinating discharge services: Exam Narrative: General: Well developed well nourished patient in no distress, sitting in chair HEENT: normocephalic, EOM intact and PERRLA Neck: supple, no lymph nodes or masses Neuro: Alert and oriented x3, speaking in full sentences CV: RRR Resp: lung sounds present bilaterally Abd: Soft, non distended. Incision site looks clean and dry without erythema or signs of infection. Bowel sounds present. Abdominal binder in place, removed for inspection and replaced. Extremities: No swelling, erythema, or pain to palpation. DS: Data Data Completed and Pending Completed studies during hospitalization: Pending at discharge 12/30/22 16:49 Surgical [PTH] Routine Labs on day o
--- NOTE | 2023-01-04 16:13 | WPDGIPROGNO ---
Progress Note: A&P Assessment and Plan (1) Post-ERCP acute pancreatitis: Code(s): K91.89 - Other postprocedural complications and disorders of digestive system; K85.90 - Acute pancreatitis without necrosis or infection, unspecified Status: Acute Assessment and Plan: medical care resolved doing much better and doing better (2) Acute cholecystitis: Code(s): K81.0 - Acute cholecystitis Status: Acute Assessment and Plan: found cholecystitis as well s/p surgery pain meds tolerating diet and she is going home (3) Nausea and vomiting in adult: Code(s): R11.2 - Nausea with vomiting, unspecified Status: Acute Assessment and Plan: resolved (4) Upper abdominal pain: Code(s): R10.10 - Upper abdominal pain, unspecified Status: Acute Assessment and Plan: almost gone (5) Elevated liver enzymes: Code(s): R74.8 - Abnormal levels of other serum enzymes Status: Inactive Assessment and Plan: trending down ERCP few days ago removed bile duct stone Subjective Date/time seen: 01/04/23 16:13 Interval history: doing much better, pain almost gone she is going home today Review of Systems Review of Systems: All systems reviewed & are unremarkable except as noted in HPI and below Exam Const: General: comfortable, no acute distress and awake HENMT: Face/Nose/Sinus: Normal nares present Eyes: Sclera: sclerae normal Neck: Neck: supple Resp: Effort & Inspection: normal respiratory effort Cardio: Rate: regular rate GI: Inspection: non-distended, incision (midline incision dry and marisela intact, no erythema or drainage) and other (GLADIS drain with scant serosanguineous drainage) GI Palp: Yes Soft to palpation, Yes Tenderness to palpation present (GI) (expected incisional tenderness) and No Guarding due to palpation present (GI) Auscultation: normal bowel sounds Skin: General skin exam: normal color Neuro: Speech: normal speech Motor exam (neuro): 5/5 motor strength present throughout Extrem: General: no calf tenderness and no edema Psych: Mental Status: mental status grossly normal Insight: Good insight present (Psych) Objective Data Vital Signs Vital Signs: Vital Signs - 24 hr 01/03/23 20:00 01/03/23 22:00 01/04/23 00:00 Temperature 98.4 F Pulse Rate 83 105 H Respiratory Rate 21 H Blood Pressure 145/73 H Pulse Oximetry 94 100 Oxygen Delivery Nasal Cannula Oxygen Flow Rate 1 01/04/23 04:00 01/03/23 20:00 01/04/23 06:00 Temperature 98.6 F Pulse Rate 85 81 Respiratory Rate 20 Blood Pressure 108/61 Pulse Oximetry 94 98 Oxygen Delivery Nasal Cannula Oxygen Flow Rate 1 01/04/23 09:42 01/04/23 08:00 01/04/23 12:00 Temperature Pulse Rate 71 79 Respiratory Rate Blood Pressure Pulse Oximetry Oxygen Delivery Room Air Oxygen Flow Rate 01/04/23 14:00 Temperature 97.6 F Pulse Rate 85 Respiratory Rate 16 Blood Pressure 129/79 Pulse Oximetry 99 Oxygen Delivery Oxygen Flow Rate Intake/Output Intake/Output: Intake & Output 01/01/23 01/02/23 01/03/23 01/04/23 23:59 23:59 23:59 23:59 Intake Total 1387 2434 3510 1540 Output Total 2500 705 1020 978 Balance -1113 1729 2490 562 Meds/Results Medications: Active Medications Generic Name Dose Route Start Last Admin Trade Name Freq PRN Reason Stop Dose Admin Acetaminophen 650 mg 01/03/23 15:29 Acetaminophen 325 Mg Tablet PO Q4H PRN Mild Pain (1-3) or Fever Hydrocodone Bitart/Acetaminophen 1 tab 01/03/23 15:29 01/03/23 16:16 Hydrocodone/Acetaminophen (*Crx) 5-325 Mg Tablet PO 1 tab Q4H PRN Administration Pain Rated 4-6 Hydrocodone Bitart/Acetaminophen 1 tab 01/03/23 15:29 Hydrocodone/Acetaminophen (*Crx) 7.5-325 Mg Tablet PO Q4H PRN Pain Rated 7-10 Diazepam 5 mg 01/03/23 09:58 01/04/23 00:18 Diazepam Inj (*Crx) 10 Mg/2 Ml Syringe IV PUSH 5 m
--- NOTE | 2023-01-11 09:56 | PC.NURSE ---
Blood cx are negative.
== END 2023-01-04 17:10 | disposition home or self-care (01) | DRG 951 ==
LOC: ANHED 23:10 → ANH3MED 23:49
PROVIDERS: Anesthesiology; Nurse Practitioner Acute Care; Nurse Practitioner Family; Physician Assistant; Surgery; Admitting Provider Internal Medicine; Emergency Provider Student in an Organized Health Care Education/Training Program; Visit Provider Nurse Practitioner
PROC: 0FT40ZZ Resection of Gallbladder, Open Approach (ICD-10-PCS; CPT 49000; principal; 2022-12-30 15:30)
PROC: 0FT40ZZ Resection of Gallbladder, Open Approach (ICD-10-PCS; 2022-12-30 15:30)
DX: K91.89 Other postprocedural complications and disorders of digestive system (principal); J96.01 Acute respiratory failure with hypoxia; K85.90 Acute pancreatitis without necrosis or infection, unspecified; K80.01 Calculus of gallbladder with acute cholecystitis with obstruction; K29.70 Gastritis, unspecified, without bleeding; R00.0 Tachycardia, unspecified
CPT/HCPCS: 36415; 71045; 71275; 74177; 74329; 80048; 80053; 80076; 81001; 82948; 83605; 83690; 83735; 83880; 84484; 84702; 85025; 85027; 85055; 85610; 86850; 86900; 86901; 87040; 87086; 88304; 93005; 93306; 96361; 96365; 96375; 96376; 97161; 97165; 97530; 97535; 99285; A9270; C1713; J0696; J1100; J1170; J1200; J1650; J1741; J1836; J2250; J2270; J2405; J2543; J2704; J3010; J3360; J3480; J7030; J7040; J7120; Q9966; Q9967